=== PATIENT | male | born 1960 ===

== ENCOUNTER 2018-04-11 09:56 | Observation (INO) | payer MEDICAID, OTHER ==
[2018-04-11 10:02] VITALS: BMI 25.7
[2018-04-11] MEDS ORDERED: Iodixanol 320 MG/ML 100 ML BOTTLE IV ONE (10:31)
[2018-04-11] MEDS ORDERED: Sodium Chloride 0.9% 50 ML IV ONE (10:31)
--- NOTE | 2018-04-11 10:37 | ED PDOC ---
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 Patient stated that after his dialysis (TTS) he felt numbness on left side of his body, face, and leg, which continued in the ED. Patient denies any headache, chest pain or dizziness. PMD: none Financial Report Service Sales Agent: Juliet Jeffries NIHSS Stroke Scale - Date/Time Evaluation Performed Date Performed: 04/11/18 Time Performed: 09:47 When Was NIHSS Performed: Code Stroke - How Severe is the Stroke Level of Consciousness: 0=Alert LOC to Questions: 0=Both comments correct LOC to commands: 0=Obeys both correctly Best Gaze: 0=Normal Visual: 0=No visual loss Facial: 0=Normal Motor Arm - Left: 0=No drift Motor Arm - Right: 0=No drift Motor Leg - Left: 0=No drift Motor Leg - Right: 0=No drift Limb Ataxia: 0=Absent Sensory: 0=Normal Best Language: 0=No aphasia Dysarthia: 0=Normal articulation Extinction & Inattention (Neglect): 0=Normal, no object Score: 0 rTPA Inclusion/Exclusion - Refusal of Treatment Patient Refused Treatment: No - Inclusion Criteria for Altepase Patient is 18 years or Older: Yes The Clinical Diagnosis of Ischemic Stroke That is Causing a Potentially Disabling Neurological Deficit: No Time of Onset is Well Established to be Less Than 270 Minute Before Treatment Would Begin: Yes Risk/Benefit Discussed With Patient/Family Member Present: No Past Medical History Reviewed: Historical Data, Nursing Documentation, Vital Signs Vital Signs: Last Vital Signs Temp 97.7 F 04/11/18 09:59 Pulse 66 04/11/18 09:59 Resp 20 04/11/18 09:59 BP 112/71 04/11/18 09:59 Pulse Ox 96 04/11/18 09:59 - Medical History PMH: HTN, Hypercholesterolemia - Surgical History Other surgeries: AV shunt on right arm, dialysis - Family History Family History: States: Unknown Family Hx - Home Medications Home Medications: Ambulatory Orders Medication Instructions Recorded RX: Aspirin [Ecotrin] 81 mg PO DAILY 04/11/18 RX: Atorvastatin [Lipitor] 20 mg PO HS 04/11/18 RX: Cinacalcet [Sensipar] 30 mg PO DAILY 04/11/18 RX: GlipiZIDE [Glucotrol] 10 mg PO DAILY 04/11/18 RX: Metoprolol Tartrate [Lopressor] 25 mg PO Q12 04/11/18 RX: Sevelamer Carbonate [Renvela] 1,600 mg PO TID 04/11/18 RX: amLODIPine [Norvasc] 10 mg PO DAILY 04/11/18 RX: hydrALAZINE [Apresoline] 50 mg PO Q12 04/11/18 RX: Clopidogrel [Plavix] 75 mg PO DAILY 30 Days tab 04/12/18 - Allergies Allergies/Adverse Reactions: Allergies Allergy/AdvReac Type Severity Reaction Status Date / Time No Known Allergies Allergy Verified 04/11/18 10:16 Review of Systems ROS Statement: Except As Marked, All Systems Reviewed And Found Negative Cardiovascular: Negative for: Chest Pain Neurological: Positive for: Numbness. Negative for: Headache, Dizziness Physical Exam - Reviewed Nursing Documentation Reviewed: Yes Vital Signs Reviewed: Yes - Physical Exam Appears: Positive for: Non-toxic, No Acute Distress Head Exam: Positive for: ATRAUMATIC, NORMOCEPHALIC Skin: Positive for: Normal Color, Warm, Dry Eye Exam: Positive for: Normal appearance, EOMI, PERRL ENT: Positive for: Normal ENT Inspection Neck: Positive for: Normal, Painless ROM, Supple Cardiovascular/Chest: Positive for: Regular Rate, Rhythm. Negative for: Murmur Respiratory: Positive for: Normal Breath Sounds. Negative for: Respiratory Distress Gastrointestinal/Abdominal: Positive for: Normal Exam, Soft. Negative for: Tenderness Back: Positive for: Normal Inspection. Negative for: L CVA Tenderness, R CVA Tenderness, Vertebral Tenderness Extremity: Positive for: Normal ROM, Other (AV shunt in right arm). 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 Negative for: Motor/Sensory Deficits, Aphasia - Laboratory Results Result Diagrams: 04/12/18 04:50 04/12/18 11:27 - ECG O2 Sat by Pulse Oximetry: 96 (RA) Pulse Ox Interpretation: Normal - Critical Care Total Time (In Min): 30 Medical Decision Making Medical Decision Making: Initial Time: 10:20 Impression: Left sided numbness Differential diagnosis includes but not limited to TIA, acute CVA (ischemic vs. hemorrhagic) Plan: --Head CT without contrast Code stroke --CTA head/neck code stroke --EKG --BMP --Hemoglobin A1C --Lipid panel --Troponin 1 --Drug screen --Stroke team consult --Cbc with differential --Ptt --Pt --cardiac monitor --Saline lock --Nursing swallow screen PRN --Glucose, blood, POC --Vital signs Q15 mins 10:[address] Iyer who stated the CT was negative. 10:[address] FINDINGS: HEMORRHAGE: No intracranial hemorrhage. BRAIN: No mass effect or edema. No atrophy or chronic microvascular ischemic changes. VENTRICLES: Unremarkable. No hydrocephalus. CALVARIUM: Unremarkable. PARANASAL SINUSES: Unremarkable as visualized. No significant inflammatory changes. MASTOID AIR CELLS: Unremarkable as visualized. No inflammatory changes. OTHER FINDINGS: None. IMPRESSION: No acute intracranial abnormalities. No significant findings to account for the clinical presentation. Code stroke protocol: Study completed 10:27 Results conveyed verbally at 10:37. Interpretation finalized and available for review 10:38. 10:52 CTA FINDINGS: INTERNAL CEREBRAL ARTERIES: There is partially calcified atherosclerosis of the bilateral cavernous internal carotid artery segments without with [id number] bilateral stenosis resulting. The skull base, petrous, and supraclinoid segments are bilaterally widely patent. ANTERIOR CEREBRAL ARTERIES: Unremarkable. A1 and A2 segments are widely patent. Smaller distal branches unremarkable, as visualized. MIDDLE CEREBRAL ARTERIES: Unremarkable. M1 and M2 segments are widely patent. Perisylvian branches grossly symmetric. POSTERIOR CIRCULATION: Basilar Artery: Unremarkable. Distal Vertebral Arteries: Moderate to severe stenosis distal left vertebral artery with left dominant vertebrobasilar circulation identified. Posterior Cerebral Arteries: Unremarkable. Posterior Inferior Cerebellar Arteries: Unremarkable. NECK CTA: Common Carotid arteries: The bilateral common carotid appear widely patent from their origins to their bifurcations with no significant stenosis appreciated. No evidence to suggest common carotid artery dissection. Bilateral carotid bulbar calcified atherosclerosis is appreciated without significant stenosis resulting. Internal Carotid arteries: No significant stenosis is appreciated throughout the cervical internal carotid artery segments bilaterally and there is no evidence of dissection either. External Carotid arteries: Appear unremarkable bilaterally. Vertebral arteries: The bilateral vertebral arteries appear normal in caliber from their origins to their distal cervical segments. No significant stenosis or definite pattern of dissection. ANEURYSM/ VASCULAR MALFORMATIONS: None. OTHER FINDINGS: None. IMPRESSION: 1. Moderate to severe distal left vertebral artery stenosis with left dominant vertebrobasilar circulation. Right vertebral and basilar arteries are widely patent. Intracranial MR angiography also remarkable for [id number]-prfdeehw bilateral cavernous carotid atherosclerosis. 2. Mild bilateral carotid bulbar atherosclerosis with no significant cervical internal carotid artery or common carotid artery stenosis appreciated, bilaterally. 10:[address] Mendez who recommends MRI, aspirin and agrees the patient is not a TPA candidate. Discussed with Dr. Brandt for admission to the hospital, telemetry and observation. Case was also discussed with Dr. Jeffries. Scribe Attestation: Documented by Salvatore Wray, acting as a scribe for Bonny Jones MD. Provider Scribe Attestation: All medical record entries made by the Scribe were at my direction and personally dictated by me. I have reviewed the chart and agree that the record accurately reflects my personal performance of the history, physical exam, medical decision making, and the department course for this patient. I have also personally directed, reviewed, and agree with the discharge instructions and disposition. Disposition - Clinical Impression Clinical Impression: CVA (cerebral vascular accident) - Patient ED Disposition Is Patient to be Admitted: Yes Discussed With : Mara Brandt Doctor Will See Patient In The: ED - Disposition Disposition Time: 10:45 Condition: FAIR - Pt Status Changed To: Hospital Disposition Of: Observation - POA Present On Arrival: None
--- NOTE | 2018-04-11 10:43 | CT ---
Date of service: 04/11/2018 PROCEDURE: CT HEAD WITHOUT CONTRAST. HISTORY: numbness left COMPARISON: None available. TECHNIQUE: Axial computed tomography images were obtained through the head/brain without intravenous contrast. Supplemental Coronal and Sagittal projections created and reviewed. Radiation dose: Total exam DLP = 684.03 mGy-cm. This CT exam was performed using one or more of the following dose reduction techniques: Automated exposure control, adjustment of the mA and/or kV according to patient size, and/or use of iterative reconstruction technique. FINDINGS: HEMORRHAGE: No intracranial hemorrhage. BRAIN: No mass effect or edema. No atrophy or chronic microvascular ischemic changes. VENTRICLES: Unremarkable. No hydrocephalus. CALVARIUM: Unremarkable. PARANASAL SINUSES: Unremarkable as visualized. No significant inflammatory changes. MASTOID AIR CELLS: Unremarkable as visualized. No inflammatory changes. OTHER FINDINGS: None. IMPRESSION: No acute intracranial abnormalities. No significant findings to account for the clinical presentation. Code stroke protocol: Study completed 10:27 Results conveyed verbally at 10:37. Interpretation finalized and available for review 10:38.
[2018-04-11 10:49] LABS: BASO % 0.7 % (0.0-2.0); EOS # 0.1 K/uL (0.0-0.7); EOS % 1.4 % (0.0-4.0); HEMOGLOBIN 11.8 g/dL (12.0-18.0); LYMPH # 1.3 K/uL (1.0-4.3); LYMPH % 25.3 % (20.0-40.0); MEAN CELL VOLUME 98.7 fl (80.0-94.0); MEAN CORPUSCULAR HEMOGLOBIN 32.1 pg (27.0-31.0); MEAN CORPUSCULAR HGB CONC 32.5 g/dL (33.0-37.0); MEAN PLATELET VOLUME 10.2 fl (7.2-11.7); MONO # 0.7 K/uL (0.0-0.8); MONO % 12.9 % (0.0-10.0); NEUT # 3.1 K/uL (1.8-7.0); NEUT % 59.7 % (50.0-75.0); NRBC % 0.2 % (0.0-0.0); RBC 3.69 Mil/uL (4.40-5.90); RED CELL DISTRIBUTION WIDTH 14.6 % (11.5-14.5); WHITE BLOOD COUNT 5.3 K/uL (4.8-10.8)
[2018-04-11 10:54] LABS: PROTHROMBIN TIME 10.8 Seconds (9.8-13.1)
--- NOTE | 2018-04-11 10:56 | CT ---
Date of service: 04/11/2018 PROCEDURE: CT Angiography of the Brain and Neck. HISTORY: left numbness COMPARISON: None available. TECHNIQUE: CT angiography of the head and neck was performed following intravenous contrast administration. Coronal and sagittal maximum intensity projection reformatted images were generated. Contrast Dose: Visipaque 320, 99 cc Radiation dose: Total exam DLP = 463.75 mGy-cm. This CT exam was performed using one or more of the following dose reduction techniques: Automated exposure control, adjustment of the mA and/or kV according to patient size, and/or use of iterative reconstruction technique. FINDINGS: INTERNAL CEREBRAL ARTERIES: There is partially calcified atherosclerosis of the bilateral cavernous internal carotid artery segments without with [id number] bilateral stenosis resulting. The skull base, petrous, and supraclinoid segments are bilaterally widely patent. ANTERIOR CEREBRAL ARTERIES: Unremarkable. A1 and A2 segments are widely patent. Smaller distal branches unremarkable, as visualized. MIDDLE CEREBRAL ARTERIES: Unremarkable. M1 and M2 segments are widely patent. Perisylvian branches grossly symmetric. POSTERIOR CIRCULATION: Basilar Artery: Unremarkable. Distal Vertebral Arteries: Moderate to severe stenosis distal left vertebral artery with left dominant vertebrobasilar circulation identified. Posterior Cerebral Arteries: Unremarkable. Posterior Inferior Cerebellar Arteries: Unremarkable. NECK CTA: Common Carotid arteries: The bilateral common carotid appear widely patent from their origins to their bifurcations with no significant stenosis appreciated. No evidence to suggest common carotid artery dissection. Bilateral carotid bulbar calcified atherosclerosis is appreciated without significant stenosis resulting. Internal Carotid arteries: No significant stenosis is appreciated throughout the cervical internal carotid artery segments bilaterally and there is no evidence of dissection either. External Carotid arteries: Appear unremarkable bilaterally. Vertebral arteries: The bilateral vertebral arteries appear normal in caliber from their origins to their distal cervical segments. No significant stenosis or definite pattern of dissection. ANEURYSM/ VASCULAR MALFORMATIONS: None. OTHER FINDINGS: None. IMPRESSION: 1. Moderate to severe distal left vertebral artery stenosis with left dominant vertebrobasilar circulation. Right vertebral and basilar arteries are widely patent. Intracranial MR angiography also remarkable for hkkq-lr-egiaqley bilateral cavernous carotid atherosclerosis. 2. Mild bilateral carotid bulbar atherosclerosis with no significant cervical internal carotid artery or common carotid artery stenosis appreciated, bilaterally.
[2018-04-11 10:57] LABS: PARTIAL THROMBOPLASTIN TIME 31.1 Seconds (25.6-37.1)
[2018-04-11 11:15] LABS: TROPONIN I 0.069 ng/mL (0.00-0.120)
[2018-04-11] MEDS ORDERED: Labetalol 5mg/ml (4ml) IVP STA (12:01)
--- NOTE | 2018-04-11 12:52 | CP.PCM.HP ---
History of Present Illness - History of Present Illness History of Present Illness: Mr Patten is a 58 yo male with PMH of HTn, DM2, Hypercholesterolemia, end stage renal disease on dialysis (T,T,S) * able to void, was sent from dialysis due to patient had weakness, numbness on LEFT upper and lower limp annd face with difficulty swallowing and blurry vision after having his dialysis done at 9 am 04/11/18. Patient state that he never had this before, he also complained of severe headache that was 9 out of ten. Upon arrival to ED code stroke was activated, Ct scan was negative, patient symptoms have improved/resolved except for the headache. Patient state that his blood pressure is most of time is uncontrolled even if he take his medication, he state when he check his bp its normally in the 130s to 140s. Otherwise patient have no other complain, he denies LOC, dizziness, chest pain, sob, abdominal pain, loss of BM, diarrhea, constipation, dysuria or polyuria. Patient denies any trauma. Patient denies having these symptoms before. 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, family are in [place], Denies smoke, drink or drug use Surrogate: Sister Patient is Full Code ED Course --Code Stroke was called-- Upon arrival patient Vitals were WNL except for blood pressure went from 112/71 to 191/98 Neurologic/Psych: No motor/sensory deficit, 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, Oriented x3, Cerebellar Tests normal, Gait steady CT scan: negative for acute changes EKG Troponin 1x Negative Cbc with differential BMP Ptt/Ptt normal Lipid panel normal patient monitor vitals Sign Q15min Admit under observation to Evaluate CVA vs TIA Present on Admission - Present on Admission Any Indicators Present on Admission: No Review of Systems - Review of Systems All systems: reviewed and no additional remarkable complaints except - Constitutional Constitutional: absent: Anorexia, Chills, Daytime Sleepiness, Excessive Sweating, Night Sweats - EENT Eyes: Blurred Vision, Change in Vision. absent: Blind Spots Ears: absent: Decreased Hearing, Ear Discharge, Ear Pain Nose/Mouth/Throat: absent: Nasal Congestion, Nasal Discharge - Cardiovascular Cardiovascular: absent: Acrocyanosis, Chest Pain, Chest Pain at Rest, Chest Pain with Activity, Claudication, Pedal Edema, Radiating Pain - Respiratory Respiratory: absent: Cough, Dyspnea, Hemoptysis, Dyspnea on Exertion - Gastrointestinal Gastrointestinal: absent: Abdominal Pain, Bloating, Diarrhea, Dysphagia - Genitourinary Genitourinary: absent: Difficulty Urinating, Dysuria, Hematuria, Pyuria, Nocturia - Musculoskeletal Musculoskeletal: Muscle Weakness, Numbness Additional comments: Have improved - Neurological Neurological: absent: Behavioral Changes, Confusion, Restless Legs, Tremor - Psychiatric Psychiatric: absent: Confusion, Depression - Endocrine Endocrine: absent: Deepening of Voice, Fatigue - Hematologic/Lymphatic Hematologic: absent: Easy Bleeding Past Patient History - Infectious Disease Hx of Infectious Diseases: None - Past Social History Smoking Status: Never Smoked - CARDIAC Hx Hypercholesterolemia: Yes Hx Hypertension: Yes - RENAL Hx Dialysis: Yes Type of Dialysis Access: rt. lissy cath Date of Last Dialysis Treatment: 04/11/18 Hx Renal Failure: Yes - ENDOCRINE/METABOLIC Hx Diabetes Mellitus Type 2: Yes - PSYCHIATRIC Hx Substance Use: No Meds Allergies/Adverse Reactions: Allergies Allergy/AdvReac Type Severity Reaction Status Date / Time No Known Allergies Allergy Verified 04/11/18 10:16 Physical Exam - Constitutional Appears: Well, Non-toxic, No Acute Distress - Head Exam Head Exam: ATRAUMATIC, NORMAL INSPECTION, NORMOCEPHALIC - Eye Exam Eye Exam: EOMI, Normal appearance, PERRL Pupil Exam: NORMAL ACCOMODATION, PERRL - ENT Exam ENT Exam: Mucous Membranes Moist, Normal Exam - Neck Exam Neck exam: Positive for: Normal Inspection - Respiratory Exam Respiratory Exam: Clear to Auscultation Bilateral, NORMAL BREATHING PATTERN. absent: Rales, Stridor - Cardiovascular Exam Cardiovascular Exam: REGULAR RHYTHM, +S1, +S2. absent: Diastolic murmur, Gallop - GI/Abdominal Exam GI & Abdominal Exam: Normal Bowel Sounds, Soft - Extremities Exam Extremities exam: Positive for: full ROM, normal inspection. Negative for: calf tenderness, joint swelling, pedal edema - Back Exam Back exam: NORMAL INSPECTION. absent: CVA tenderness (L), CVA tenderness (R) - Neurological Exam Neurological exam: Alert, CN II-XII Intact, Normal Gait, Oriented x3 - Psychiatric Exam Psychiatric exam: Normal Affect, Normal Mood - Skin Skin Exam: Dry, Intact, Normal Color, Warm Results - Vital Signs Recent Vital Signs: Last Vital Signs Temp 97.7 F 04/11/18 09:59 Pulse 67 04/11/18 11:41 Resp 18 04/11/18 11:41 BP 180/103 H 04/11/18 11:41 Pulse Ox 96 04/11/18 12:42 - Labs Result Diagrams: 04/11/18 10:20 04/11/18 10:20 Labs: Laboratory Results - last 24 hr 04/11/18 04/11/18 04/11/18 10:12 10:20 10:20 WBC 5.3 RBC 3.69 L Hgb 11.8 L Hct 36.4 MCV 98.7 H MCH 32.1 H MCHC 32.5 L RDW 14.6 H Plt Count 167 MPV 10.2 Neut % (Auto) 59.7 Lymph % (Auto) 25.3 [place] % (Auto) 12.9 H Eos % (Auto) 1.4 Baso % (Auto) 0.7 Neut # (Auto) 3.1 Lymph # (Auto) 1.3 [place] # (Auto) 0.7 Eos # (Auto) 0.1 Baso # (Auto) 0.0 PT INR APTT Sodium 138 Potassium 4.9 Chloride 95 L Carbon Dioxide 30 Anion Gap 18 BUN 21 H Creatinine 5.1 H Est GFR ( Amer) 14 Est GFR (Non-Af Amer) 12 POC Glucose (mg/dL) 98 Random Glucose 118 H Calcium 9.0 Troponin I 0.0690 Triglycerides 104 Cholesterol 90 LDL Cholesterol Direct 42 HDL Cholesterol 39 04/11/18 10:20 WBC RBC Hgb Hct MCV MCH MCHC RDW Plt Count MPV Neut % (Auto) Lymph % (Auto) [place] % (Auto) Eos % (Auto) Baso % (Auto) Neut # (Auto) Lymph # (Auto) [place] # (Auto) Eos # (Auto) Baso # (Auto) PT 10.8 INR 1.0 APTT 31.1 Sodium Potassium Chloride Carbon Dioxide Anion Gap BUN Creatinine Est GFR ( Amer) Est GFR (Non-Af Amer) POC Glucose (mg/dL) Random Glucose Calcium Troponin I Triglycerides Cholesterol LDL Cholesterol Direct HDL Cholesterol Assessment & Plan - Assessment and Plan (Free Text) Assessment: Mr Patten is a 58 yo male with PMH of HTn, DM2, Hypercholesterolemia, End stage renal disease on dialysis (T,T,S) was sent from dialysis due to patient had weakness, numbness on LEFT upper and lower limp annd face with difficulty swallowing and blurry vision after having his dialysis done at 9 am 04/11/18. S/P Code stroke, admitted under observation for further evaluation of CVA vs TIA Assessment S/P Code stroke Neurology on case Hx of uncontrolled HTN Patient physical exam is negative for motor/sensory deficit, CN I-IIX WNL Ct scan Negative CTA: negative RAÚL Ordered need to be followed Plan Left sided numbness possible due to CVA vs TIA Continue monitoring for acute exacerbation Continue Aspirin 81mg Control blood pressure, allow permissive htn until eval for CVA completed. patient monitor Neuro on case follow up recommendation n Accelerated HTN Chronic, Uncontrolled Resume home medication allow Permissive Htn until r/o stroke DM2 Chronic, Controlled F/U HA1C Start sliding scale hypoglycemic protocol Hypercholesterolemia Chronic, Controlled Continue home medication End stage renal disease on dialysis Chronic since 2010 (TTS) Pt is able to void Received Dialysis today, No Dialysis needed until Wed Consult nephrology DVT prophylaxis Lovenox 40 SC Full Code
[2018-04-11] MEDS ORDERED: Labetalol 5mg/ml (4ml) ONE (14:35)
[2018-04-11] MEDS ORDERED: Dextrose 50% SYRINGE Inj (50 ml) IV PRN (16:05)
[2018-04-11] MEDS ORDERED: Glucagon Recombinant 1 mg Inj IM PRN (16:05)
--- NOTE | 2018-04-11 16:14 | MRI ---
Date of service: 04/11/2018 PROCEDURE: MRI BRAIN WITHOUT CONTRAST HISTORY: left numbness COMPARISON: Unenhanced head CT 04/11/2018. TECHNIQUE: Multiplanar, multisequence MR images of the brain were obtained without intravenous contrast enhancement. FINDINGS: HEMORRHAGE: None DWI: A small punctate infarcts identified on acute or subacute basis at the right frontal vertex. No lobar brain infarction appreciated throughout. BRAIN PARENCHYMA: Diffuse cerebral atrophy chronic microangiopathy are reiterated as well as small chronic lacunes at the bilateral frontal and parietal lobes. There is no mass effect once again. Posterior fossa contents appear unremarkable. Left external capsule chronic lacune is noted as well as at the right thalamus. No suspicious extra-axial fluid collection appreciated. VENTRICLES: Unremarkable. No hydrocephalus. CRANIUM: Unremarkable. ORBITS: Grossly unremarkable. PARANASAL SINUSES/MASTOIDS: Clear VASCULAR SYSTEM: Skull base flow voids intact. OTHER FINDINGS: None. IMPRESSION: Punctate acute lacune right frontal vertex. Multiple chronic lacunes identified at bilateral frontal and parietal lobes as well as at the left basal ganglia. A few scattered cavernomas are suggested at the bilateral frontal and left parietal lobes as well right occipital lobe. Chronic lacune left external capsule identified as well as at right thalamus. Age-related neuro degenerative changes are reiterated.
[2018-04-11 16:36] LABS: BARBITURATES, UR NEGATIVE (NEGATIVE); BENZODIAZEPINES, UR NEGATIVE (NEGATIVE); OPIATES, UR NEGATIVE (NEGATIVE); PHENCYCLIDINE, UR NEGATIVE (NEGATIVE)
--- NOTE | 2018-04-11 17:44 | CARD ---
APPROVED REPORT Date of service: 04/11/2018 EKG Measurement Heart [id number] ID [id number] <Conclusion> Normal sinus rhythm with sinus arrhythmia Possible Left atrial enlargement T wave abnormality, consider inferolateral ischemia Abnormal ECG
[2018-04-11] MEDS: Insulin Lispro (humaLOG) 100 Units/ml Inj SC SCH (21:33)
--- NOTE | 2018-04-11 22:59 | CP.PCM.CON ---
History of Present Illness - History of Present Illness History of Present Illness: Called by in [place] ER to evaluate patient as a code stroke. In brief, Miss mansfield is a 58 yr old woman who had sudden onset of numbness and tingling that resolved. MRI Brain shows multiple small infarcts acute in nature in the basal ganglia, with CTA head and neck showing severe vertebral artery stenosis. Stroke workup in progress. Patient was not a TPA candidate due to the fact that her symptoms resolved and she is now on aspirin and plavix. Past Patient History - Infectious Disease Hx of Infectious Diseases: None - Past Medical History & Family History Past Medical History?: Yes - Past Social History Smoking Status: Never Smoked - CARDIAC Hx Hypercholesterolemia: Yes Hx Hypertension: Yes - RENAL Hx Dialysis: Yes Type of Dialysis Access: rt. lissy cath Date of Last Dialysis Treatment: 04/11/18 Hx Renal Failure: Yes - ENDOCRINE/METABOLIC Hx Diabetes Mellitus Type 2: Yes - MUSCULOSKELETAL/RHEUMATOLOGICAL Hx Falls: No - PSYCHIATRIC Hx Substance Use: No Meds Allergies/Adverse Reactions: Allergies Allergy/AdvReac Type Severity Reaction Status Date / Time No Known Allergies Allergy Verified 04/11/18 10:16 - Medications Medications: Current Medications Amlodipine Besylate (Norvasc) 10 mg PO DAILY [facility] Aspirin (Ecotrin) 81 mg PO DAILY [facility] Atorvastatin Calcium (Lipitor) 40 mg PO HS [facility] Last Admin: 04/11/18 21:33 Dose: 40 mg Clopidogrel Bisulfate (Plavix) 75 mg PO DAILY [facility] Dextrose (Dextrose 50% Inj) 0 ml IV STAT PRN; Protocol PRN Reason: Hypoglycemia Protocol Dextrose (Glutose 15) 0 gm PO ONCE PRN; Protocol PRN Reason: Hypoglycemia Protocol Glucagon (Glucagen Diagnostic Kit) 0 mg IM STAT PRN; Protocol PRN Reason: Hypoglycemia Protocol Heparin Sodium (Porcine) (Heparin) 5,000 units SC Q12 [facility]; Protocol Last Admin: 04/11/18 21:33 Dose: 5,000 units Hydralazine HCl (Apresoline) 50 mg PO Q12 [facility] Last Admin: 04/11/18 21:25 Dose: 50 mg Insulin Human Lispro (Humalog) 0 units SC ACHS [facility]; Protocol Last Admin: 04/11/18 21:33 Dose: Not Given Metoprolol Tartrate (Lopressor) 25 mg PO Q12 [facility] Last Admin: 04/11/18 21:33 Dose: 25 mg Results - Vital Signs Recent Vital Signs: Last Vital Signs Temp 98.6 F 04/11/18 19:58 Pulse 66 04/11/18 21:33 Resp 17 04/11/18 19:58 BP 155/77 H 04/11/18 21:33 Pulse Ox 96 04/11/18 19:58 - Labs Result Diagrams: 04/11/18 10:20 04/11/18 10:20 Labs: Laboratory Results - last 24 hr 04/11/18 04/11/18 04/11/18 10:12 10:20 10:20 WBC 5.3 RBC 3.69 L Hgb 11.8 L Hct 36.4 MCV 98.7 H MCH 32.1 H MCHC 32.5 L RDW 14.6 H Plt Count 167 MPV 10.2 Neut % (Auto) 59.7 Lymph % (Auto) 25.3 [place] % (Auto) 12.9 H Eos % (Auto) 1.4 Baso % (Auto) 0.7 Neut # (Auto) 3.1 Lymph # (Auto) 1.3 [place] # (Auto) 0.7 Eos # (Auto) 0.1 Baso # (Auto) 0.0 PT INR APTT Sodium 138 Potassium 4.9 Chloride 95 L Carbon Dioxide 30 Anion Gap 18 BUN 21 H Creatinine 5.1 H Est GFR ( Amer) 14 Est GFR (Non-Af Amer) 12 POC Glucose (mg/dL) 98 Random Glucose 118 H Hemoglobin A1c Calcium 9.0 Troponin I 0.0690 Triglycerides 104 Cholesterol 90 LDL Cholesterol Direct 42 HDL Cholesterol 39 Urine Opiates Screen Urine Methadone Screen Ur Barbiturates Screen Ur Phencyclidine Scrn Ur Amphetamines Screen U Benzodiazepines Scrn U Oth Cocaine Metabols U Cannabinoids Screen 04/11/18 04/11/18 04/11/18 10:20 10:20 16:11 WBC RBC Hgb Hct MCV MCH MCHC RDW Plt Count MPV Neut % (Auto) Lymph % (Auto) [place] % (Auto) Eos % (Auto) Baso % (Auto) Neut # (Auto) Lymph # (Auto) [place] # (Auto) Eos # (Auto) Baso # (Auto) PT 10.8 INR 1.0 APTT 31.1 Sodium Potassium Chloride Carbon Dioxide Anion Gap BUN Creatinine Est GFR ( Amer) Est GFR (Non-Af Amer) POC Glucose (mg/dL) Random Glucose Hemoglobin A1c 6.0 Calcium Troponin I Triglycerides Cholesterol LDL Cholesterol Direct HDL Cholesterol Urine Opiates Screen Negative Urine Methadone Screen Negative Ur Barbiturates Screen Negative Ur Phencyclidine Scrn Negative Ur Amphetamines Screen Negative U Benzodiazepines Scrn Negative U Oth Cocaine Metabols Negative U Cannabinoids Screen Negative
--- NOTE | 2018-04-11 23:36 | CP.PCM.CON ---
History of Present Illness - History of Present Illness History of Present Illness: Full consult dictated. Please see report for further details. In brief, mr. mansfield had acute onset left arm leg and face numbness with no weakness. These symptoms resolved and he is now stable and ready for discharge. He has had str travis workup completed, including Echo, lipid profile, and CTA head and neck. Cta showed that he has vertebral artery stenosis, and we started him on aspirin and plavix. Plan: 1. Continue on aspirin and plavix. 2. Follow up with neurology Cheryleyoeaston stubbs Past Patient History - Infectious Disease Hx of Infectious Diseases: None - Past Medical History & Family History Past Medical History?: Yes - Past Social History Smoking Status: Never Smoked - CARDIAC Hx Hypercholesterolemia: Yes Hx Hypertension: Yes - RENAL Hx Dialysis: Yes Type of Dialysis Access: rt. lissy cath Date of Last Dialysis Treatment: 04/11/18 Hx Renal Failure: Yes - ENDOCRINE/METABOLIC Hx Diabetes Mellitus Type 2: Yes - MUSCULOSKELETAL/RHEUMATOLOGICAL Hx Falls: No - PSYCHIATRIC Hx Substance Use: No Meds Allergies/Adverse Reactions: Allergies Allergy/AdvReac Type Severity Reaction Status Date / Time No Known Allergies Allergy Verified 04/11/18 10:16 - Medications Medications: Current Medications Amlodipine Besylate (Norvasc) 10 mg PO DAILY [facility] Aspirin (Ecotrin) 81 mg PO DAILY [facility] Atorvastatin Calcium (Lipitor) 40 mg PO HS [facility] Last Admin: 04/11/18 21:33 Dose: 40 mg Clopidogrel Bisulfate (Plavix) 75 mg PO DAILY [facility] Dextrose (Dextrose 50% Inj) 0 ml IV STAT PRN; Protocol PRN Reason: Hypoglycemia Protocol Dextrose (Glutose 15) 0 gm PO ONCE PRN; Protocol PRN Reason: Hypoglycemia Protocol Glucagon (Glucagen Diagnostic Kit) 0 mg IM STAT PRN; Protocol PRN Reason: Hypoglycemia Protocol Heparin Sodium (Porcine) (Heparin) 5,000 units SC Q12 [facility]; Protocol Last Admin: 04/11/18 21:33 Dose: 5,000 units Hydralazine HCl (Apresoline) 50 mg PO Q12 [facility] Last Admin: 04/11/18 21:25 Dose: 50 mg Insulin Human Lispro (Humalog) 0 units SC ACHS [facility]; Protocol Last Admin: 04/11/18 21:33 Dose: Not Given Metoprolol Tartrate (Lopressor) 25 mg PO Q12 [facility] Last Admin: 04/11/18 21:33 Dose: 25 mg Results - Vital Signs Recent Vital Signs: Last Vital Signs Temp 98.6 F 04/11/18 19:58 Pulse 66 04/11/18 21:33 Resp 17 04/11/18 19:58 BP 155/77 H 04/11/18 21:33 Pulse Ox 96 04/11/18 19:58 - Labs Result Diagrams: 04/12/18 04:50 04/12/18 11:27 Labs: Laboratory Results - last 24 hr 04/11/18 04/11/18 04/11/18 10:12 10:20 10:20 WBC 5.3 RBC 3.69 L Hgb 11.8 L Hct 36.4 MCV 98.7 H MCH 32.1 H MCHC 32.5 L RDW 14.6 H Plt Count 167 MPV 10.2 Neut % (Auto) 59.7 Lymph % (Auto) 25.3 [place] % (Auto) 12.9 H Eos % (Auto) 1.4 Baso % (Auto) 0.7 Neut # (Auto) 3.1 Lymph # (Auto) 1.3 [place] # (Auto) 0.7 Eos # (Auto) 0.1 Baso # (Auto) 0.0 PT INR APTT Sodium 138 Potassium 4.9 Chloride 95 L Carbon Dioxide 30 Anion Gap 18 BUN 21 H Creatinine 5.1 H Est GFR ( Amer) 14 Est GFR (Non-Af Amer) 12 POC Glucose (mg/dL) 98 Random Glucose 118 H Hemoglobin A1c Calcium 9.0 Troponin I 0.0690 Triglycerides 104 Cholesterol 90 LDL Cholesterol Direct 42 HDL Cholesterol 39 Urine Opiates Screen Urine Methadone Screen Ur Barbiturates Screen Ur Phencyclidine Scrn Ur Amphetamines Screen U Benzodiazepines Scrn U Oth Cocaine Metabols U Cannabinoids Screen 04/11/18 04/11/18 04/11/18 10:20 10:20 16:11 WBC RBC Hgb Hct MCV MCH MCHC RDW Plt Count MPV Neut % (Auto) Lymph % (Auto) [place] % (Auto) Eos % (Auto) Baso % (Auto) Neut # (Auto) Lymph # (Auto) [place] # (Auto) Eos # (Auto) Baso # (Auto) PT 10.8 INR 1.0 APTT 31.1 Sodium Potassium Chloride Carbon Dioxide Anion Gap BUN Creatinine Est GFR ( Amer) Est GFR (Non-Af Amer) POC Glucose (mg/dL) Random Glucose Hemoglobin A1c 6.0 Calcium Troponin I Triglycerides Cholesterol LDL Cholesterol Direct HDL Cholesterol Urine Opiates Screen Negative Urine Methadone Screen Negative Ur Barbiturates Screen Negative Ur Phencyclidine Scrn Negative Ur Amphetamines Screen Negative U Benzodiazepines Scrn Negative U Oth Cocaine Metabols Negative U Cannabinoids Screen Negative
[2018-04-12 05:46] LABS: HEMOGLOBIN 11.8 g/dL (12.0-18.0); MEAN CORPUSCULAR HEMOGLOBIN 31.9 pg (27.0-31.0); MEAN CORPUSCULAR HGB CONC 32.3 g/dL (33.0-37.0); RBC 3.69 Mil/uL (4.40-5.90); RED CELL DISTRIBUTION WIDTH 14.3 % (11.5-14.5); WHITE BLOOD COUNT 6.3 K/uL (4.8-10.8)
[2018-04-12 06:09] LABS: CALCIUM 9.1 mg/dL (8.4-10.2)
[2018-04-12] MEDS ORDERED: Sod Polystyrene Sulf 15 gm/60 ml Susp PO ONE ×2 (07:43→17:00)
--- NOTE | 2018-04-12 08:52 | CARD ---
APPROVED REPORT Date of service: 04/12/2018 EKG Measurement Heart [id number] <Conclusion> Normal sinus rhythm with sinus arrhythmia Left ventricular hypertrophy with repolarization abnormality T wave abnormality, cannot rule out inferolateral ischemia Abnormal ECG
[2018-04-12] MEDS ORDERED: Enoxaparin 40 mg Syringe SC SCH (09:00)
[2018-04-12] MEDS: Insulin Lispro (humaLOG) 100 Units/ml Inj SC SCH ×4 (10:06→22:31)
--- NOTE | 2018-04-12 11:37 | CP.PCM.CON ---
History of Present Illness - History of Present Illness History of Present Illness: 58 yo Hm with pmh/o htn, esrd on hd since 2010 , dm, was sent from hd unit after dialysis with left sideded numbness and, l, sx last for 20 minutes, no h/a,no dizyness, no cp, palpitation, no nausea, no vomitings, no fever, no cough, no sob weakness , sudden onset. as per Rn his sbp was about 180 . pt was also admitted to Hospital in [place] about 2 weeks ago with semilar symptoms. Review of Systems - Constitutional Constitutional: As Per HPI - EENT Eyes: As Per HPI Ears: As Per HPI Nose/Mouth/Throat: As Per HPI - Cardiovascular Cardiovascular: As Per HPI - Respiratory Respiratory: As Per HPI - Gastrointestinal Gastrointestinal: As Per HPI - Genitourinary Genitourinary: As Per HPI - Musculoskeletal Musculoskeletal: As Per HPI - Integumentary Integumentary: As Per HPI - Neurological Additional comments: left sided weakness, numbness for 20 minutes - Endocrine Endocrine: As Per HPI - Hematologic/Lymphatic Hematologic: As Per HPI Past Patient History - Infectious Disease Hx of Infectious Diseases: None - Past Medical History & Family History Past Medical History?: Yes - Past Social History Smoking Status: Never Smoked - CARDIAC Hx Hypercholesterolemia: Yes Hx Hypertension: Yes - RENAL Hx Dialysis: Yes Type of Dialysis Access: rt. lissy cath Date of Last Dialysis Treatment: 04/11/18 Hx Renal Failure: Yes - ENDOCRINE/METABOLIC Hx Diabetes Mellitus Type 2: Yes - MUSCULOSKELETAL/RHEUMATOLOGICAL Hx Falls: No - PSYCHIATRIC Hx Substance Use: No Meds Home Medications: Home Medication List Medication Instructions Recorded Confirmed Type Clopidogrel [Plavix] 75 mg PO DAILY 30 Days tab 04/12/18 Rx Allergies/Adverse Reactions: Allergies Allergy/AdvReac Type Severity Reaction Status Date / Time No Known Allergies Allergy Verified 04/11/18 10:16 - Medications Medications: Current Medications Amlodipine Besylate (Norvasc) 10 mg PO DAILY [facility] Last Admin: 04/12/18 10:07 Dose: 10 mg Aspirin (Ecotrin) 81 mg PO DAILY [facility] Last Admin: 04/12/18 10:05 Dose: 81 mg Atorvastatin Calcium (Lipitor) 40 mg PO HS [facility] Last Admin: 04/11/18 21:33 Dose: 40 mg Clopidogrel Bisulfate (Plavix) 75 mg PO DAILY [facility] Last Admin: 04/12/18 10:07 Dose: 75 mg Dextrose (Dextrose 50% Inj) 0 ml IV STAT PRN; Protocol PRN Reason: Hypoglycemia Protocol Dextrose (Glutose 15) 0 gm PO ONCE PRN; Protocol PRN Reason: Hypoglycemia Protocol Glucagon (Glucagen Diagnostic Kit) 0 mg IM STAT PRN; Protocol PRN Reason: Hypoglycemia Protocol Heparin Sodium (Porcine) (Heparin) 5,000 units SC Q12 [facility]; Protocol Last Admin: 04/12/18 10:05 Dose: 5,000 units Hydralazine HCl (Apresoline) 50 mg PO Q12 [facility] Last Admin: 04/12/18 10:04 Dose: 50 mg Insulin Human Lispro (Humalog) 0 units SC ACHS [facility]; Protocol Last Admin: 04/12/18 10:06 Dose: Not Given Metoprolol Tartrate (Lopressor) 25 mg PO Q12 [facility] Last Admin: 04/12/18 10:07 Dose: 25 mg Physical Exam - Constitutional Appears: Well, Non-toxic, No Acute Distress - Head Exam Head Exam: ATRAUMATIC, NORMAL INSPECTION - Eye Exam Eye Exam: EOMI, Normal appearance, PERRL Pupil Exam: NORMAL ACCOMODATION - ENT Exam ENT Exam: Mucous Membranes Moist - Respiratory Exam Respiratory Exam: Clear to Auscultation Bilateral, NORMAL BREATHING PATTERN - Cardiovascular Exam Cardiovascular Exam: REGULAR RHYTHM, +S1, +S2 - GI/Abdominal Exam GI & Abdominal Exam: Normal Bowel Sounds, Soft - Rectal Exam Rectal Exam: Deferred - Extremities Exam Additional comments: nl edema - Neurological Exam Neurological exam: Alert, CN II-XII Intact, Normal Gait, Oriented x3 - Psychiatric Exam Psychiatric exam: Normal Affect, Normal Mood - Skin Skin Exam: Normal Color Results - Vital Signs Recent Vital Signs: Last Vital Signs Temp 97.5 F L 04/12/18 07:50 Pulse 69 04/12/18 10:07 Resp 20 04/12/18 07:50 BP 181/76 H 04/12/18 10:07 Pulse Ox 98 04/12/18 07:50 - Labs Result Diagrams: 04/12/18 04:50 04/12/18 11:27 Labs: Laboratory Results - last 24 hr 04/11/18 04/11/18 04/11/18 10:20 16:11 21:30 WBC RBC Hgb Hct MCV MCH MCHC RDW Plt Count Sodium Potassium Chloride Carbon Dioxide Anion Gap BUN Creatinine Est GFR ( Amer) Est GFR (Non-Af Amer) POC Glucose (mg/dL) 88 Random Glucose Hemoglobin A1c 6.0 Calcium Urine Opiates Screen Negative Urine Methadone Screen Negative Ur Barbiturates Screen Negative Ur Phencyclidine Scrn Negative Ur Amphetamines Screen Negative U Benzodiazepines Scrn Negative U Oth Cocaine Metabols Negative U Cannabinoids Screen Negative 04/12/18 04/12/18 04/12/18 04:50 04:50 05:16 WBC 6.3 RBC 3.69 L Hgb 11.8 L Hct 36.5 MCV 99.0 H MCH 31.9 H MCHC 32.3 L RDW 14.3 Plt Count 154 Sodium 138 Potassium 5.7 H Chloride 95 L Carbon Dioxide 31 H Anion Gap 18 BUN 43 H Creatinine 8.3 H* D Est GFR ( Amer) 8 Est GFR (Non-Af Amer) 7 POC Glucose (mg/dL) 91 Random Glucose 93 Hemoglobin A1c Calcium 9.1 Urine Opiates Screen Urine Methadone Screen Ur Barbiturates Screen Ur Phencyclidine Scrn Ur Amphetamines Screen U Benzodiazepines Scrn U Oth Cocaine Metabols U Cannabinoids Screen 04/12/18 10:57 WBC RBC Hgb Hct MCV MCH MCHC RDW Plt Count Sodium Potassium Chloride Carbon Dioxide Anion Gap BUN Creatinine Est GFR ( Amer) Est GFR (Non-Af Amer) POC Glucose (mg/dL) 228 H Random Glucose Hemoglobin A1c Calcium Urine Opiates Screen Urine Methadone Screen Ur Barbiturates Screen Ur Phencyclidine Scrn Ur Amphetamines Screen U Benzodiazepines Scrn U Oth Cocaine Metabols U Cannabinoids Screen - Imaging and Cardiology CT scan - head Status: Report reviewed by me MRI - head Status: Report reviewed by me Assessment & Plan - Assessment and Plan (Free Text) Assessment: 58 yo HM with pmh/o htn, dm, esrd on hd since 2010 with left sided weakness 1. ESRD 2. HTN 3. DM 4. Hyperkalemia 5. TIA agree with kayexalate for hd in am c/w current anti htn meds, and titrate as needed follow up with neurology Plan: as above
--- NOTE | 2018-04-12 14:05 | CP.PCM.PN ---
<Osito Kline - Last Filed: 04/12/18 16:45> Subjective - Date & Time of Evaluation Date of Evaluation: 04/12/18 Time of Evaluation: 08:00 - Subjective Subjective: Patient seen and examined at bedside. No acute event overnight. Patient was able to eat, drink, swallow with no difficulty, he denies any vision problem, chewing , or any numbness or weakness in all extremity. Patient state he feel good, and denies any headache, chest pain, sob, abd pain or any other symptoms. Objective - Vital Signs/Intake and Output Vital Signs (last 24 hours): Temp Pulse Resp BP Pulse Ox 97.6 F 61 20 157/73 H 98 04/12/18 12:21 04/12/18 12:21 04/12/18 12:21 04/12/18 12:21 04/12/18 12:21 - Medications Medications: Current Medications Amlodipine Besylate (Norvasc) 10 mg PO DAILY [facility] Last Admin: 04/12/18 10:07 Dose: 10 mg Aspirin (Ecotrin) 81 mg PO DAILY [facility] Last Admin: 04/12/18 10:05 Dose: 81 mg Atorvastatin Calcium (Lipitor) 40 mg PO HS [facility] Last Admin: 04/11/18 21:33 Dose: 40 mg Clopidogrel Bisulfate (Plavix) 75 mg PO DAILY [facility] Last Admin: 04/12/18 10:07 Dose: 75 mg Dextrose (Dextrose 50% Inj) 0 ml IV STAT PRN; Protocol PRN Reason: Hypoglycemia Protocol Dextrose (Glutose 15) 0 gm PO ONCE PRN; Protocol PRN Reason: Hypoglycemia Protocol Glucagon (Glucagen Diagnostic Kit) 0 mg IM STAT PRN; Protocol PRN Reason: Hypoglycemia Protocol Heparin Sodium (Porcine) (Heparin) 5,000 units [place] Q12 [facility]; Protocol Last Admin: 04/12/18 10:05 Dose: 5,000 units Hydralazine HCl (Apresoline) 50 mg PO Q12 [facility] Last Admin: 04/12/18 10:04 Dose: 50 mg Insulin Human Lispro (Humalog) 0 units SC ACHS [facility]; Protocol Last Admin: 04/12/18 12:13 Dose: 3 units Metoprolol Tartrate (Lopressor) 25 mg PO Q12 [facility] Last Admin: 04/12/18 10:07 Dose: 25 mg - Labs Labs: 04/12/18 04:50 04/12/18 11:27 PT 10.8 Seconds (9.8-13.1) 04/11/18 10:20 INR 1.0 04/11/18 10:20 APTT 31.1 Seconds (25.6-37.1) 04/11/18 10:20 - Constitutional Appears: Well, Non-toxic, No Acute Distress - Head Exam Head Exam: ATRAUMATIC, NORMAL INSPECTION, NORMOCEPHALIC - Eye Exam Eye Exam: EOMI, Normal appearance, PERRL Pupil Exam: NORMAL ACCOMODATION, PERRL - ENT Exam ENT Exam: Mucous Membranes Moist, Normal Exam - Neck Exam Neck Exam: Full ROM, Normal Inspection - Respiratory Exam Respiratory Exam: Clear to Ausculation Bilateral, NORMAL BREATHING PATTERN - Cardiovascular Exam Cardiovascular Exam: REGULAR RHYTHM, +S1, +S2 - GI/Abdominal Exam GI & Abdominal Exam: Soft, Normal Bowel Sounds - Extremities Exam Extremities Exam: Full ROM, Normal Capillary Refill, Normal Inspection - Back Exam Back Exam: NORMAL INSPECTION - Neurological Exam Neurological Exam: Alert, Awake, CN II-XII Intact, Motor Sensory Deficit, Normal Gait, Oriented x3 Neuro motor strength exam: Left Upper Extremity: 5, Right Upper Extremity: 5, Left Lower Extremity: 5, Right Lower Extremity: 5 - Psychiatric Exam Psychiatric exam: Normal Affect, Normal Mood - Skin Skin Exam: Dry, Intact, Normal Color, Warm Assessment and Plan - Assessment and Plan (Free Text) Assessment: Mr Patten is a 58 yo male with PMH of HTn, DM2, Hypercholesterolemia, End stage renal disease on dialysis (T,T,S) was sent from dialysis due to patient had weakness, numbness on LEFT upper and lower limp and face with difficulty swallowing and blurry vision after having his dialysis done at 9 am 04/11/18. S /P Code stroke, admitted under observation for further evaluation of CVA vs TIA. Diagnosed with CVA with no residual effect Assessment S/P Code stroke Neurology on case Nephro on case Hx of uncontrolled HTN Patient physical exam is negative for motor/sensory deficit, CN I-IIX WNL Neuro cleared patient, will follow up as outpatient Patient Blood pressure uncontrolled ( >190 systolic) will keep today on observation to better control Head/Neck CTA: Moderate to severe distal left vertebral artery stenosis with left dominant vertebrobasilar circulation. Right vertebral and basilar arteries are widely patent. EKG: NSH left ventricular hypertrophy with repolarization abnormality ( no changes) Head CT: negative for acute infarct MRI head : Punctuate acute lacuna right frontal vertex. Multiple chronic lacunas identified at bilateral frontal and parietal lobes as well as at the left basal ganglia. A few scattered cavernous are suggested at the b/l frontal and left parietal lobe as well right occipital lobe. Plan Left sided numbness due to CVA with no residual effect Continue monitoring for acute exacerbation Continue Aspirin 81mg Start Plavix 75mg Control blood pressure, allow permissive htn manager monitoring Neuro cleared patient, will follow up as outpatient Accelerated HTN Chronic, uncontrolled Resume home medication allow Permissive Htn Hyperkalemia Potassium 5.6->5.3 Keyexalate ordered EKG: no acute changes Follow up CMP DM2 Chronic, Controlled HA1C: 6 Sliding scale hypoglycemic protocol Hypercholesterolemia Chronic, Controlled Continue home medication End stage renal disease on dialysis Chronic since 2010 (TTS) Pt is able to void Received Dialysis today, No Dialysis needed until Wed FU consult nephrology Dialysis tomorrow before DC DVT prophylaxis Heparin 5000 sc Q12 Full Code <Sachi Charlton - Last Filed: 04/12/18 17:18> Objective - Vital Signs/Intake and Output Vital Signs (last 24 hours): Temp Pulse Resp BP Pulse Ox 97.9 F 69 18 190/82 H 98 04/12/18 16:35 04/12/18 16:43 04/12/18 16:35 04/12/18 16:43 04/12/18 16:35 - Medications Medications: Current Medications Amlodipine Besylate (Norvasc) 10 mg PO DAILY [facility] Last Admin: 04/12/18 10:07 Dose: 10 mg Aspirin (Ecotrin) 81 mg PO DAILY [facility] Last Admin: 04/12/18 10:05 Dose: 81 mg Atorvastatin Calcium (Lipitor) 40 mg PO HS [facility] Last Admin: 04/11/18 21:33 Dose: 40 mg Clopidogrel Bisulfate (Plavix) 75 mg PO DAILY [facility] Last Admin: 04/12/18 10:07 Dose: 75 mg Dextrose (Dextrose 50% Inj) 0 ml IV STAT PRN; Protocol PRN Reason: Hypoglycemia Protocol Dextrose (Glutose 15) 0 gm PO ONCE PRN; Protocol PRN Reason: Hypoglycemia Protocol Glucagon (Glucagen Diagnostic Kit) 0 mg IM STAT PRN; Protocol PRN Reason: Hypoglycemia Protocol Heparin Sodium (Porcine) (Heparin) 5,000 units SC Q12 [facility]; Protocol Last Admin: 04/12/18 10:05 Dose: 5,000 units Hydralazine HCl (Apresoline) 50 mg PO Q8 [facility] Last Admin: 04/12/18 16:43 Dose: 50 mg Insulin Human Lispro (Humalog) 0 units SC ACHS [facility]; Protocol Last Admin: 04/12/18 16:37 Dose: Not Given Metoprolol Tartrate (Lopressor) 25 mg PO Q12 [facility] Last Admin: 04/12/18 10:07 Dose: 25 mg - Labs Labs: 04/12/18 04:50 04/12/18 11:27 PT 10.8 Seconds (9.8-13.1) 04/11/18 10:20 INR 1.0 04/11/18 10:20 APTT 31.1 Seconds (25.6-37.1) 04/11/18 10:20 Attending/Attestation - Attestation I have personally seen and examined this patient.: Yes I have fully participated in the care of the patient.: Yes I have reviewed all pertinent clinical information, including history, physical exam and plan: Yes
--- NOTE | 2018-04-12 16:44 | CP.PCM.DIS ---
<Osito Kline - Last Filed: 04/13/18 17:12> Provider - Provider Date of Admission: 04/11/18 12:07 Attending physician: Mara Brandt MD Primary care physician: Non [facility] Provider Time Spent in preparation of Discharge (in minutes): 20 Diagnosis - Discharge Diagnosis (1) CVA (cerebral vascular accident) Status: Acute (2) Accelerated hypertension Status: Acute (3) Diabetes insipidus Status: Chronic Hospital Course - Lab Results Lab Results: Most Recent Lab Values WBC 6.3 K/uL (4.8-10.8) 04/12/18 04:50 RBC 3.69 Mil/uL (4.40-5.90) L 04/12/18 04:50 Hgb 11.8 g/dL (12.0-18.0) L 04/12/18 04:50 Hct 36.5 % (35.0-51.0) 04/12/18 04:50 MCV 99.0 fl (80.0-94.0) H 04/12/18 04:50 MCH 31.9 pg (27.0-31.0) H 04/12/18 04:50 MCHC 32.3 g/dL (33.0-37.0) L 04/12/18 04:50 RDW 14.3 % (11.5-14.5) 04/12/18 04:50 Plt Count 154 K/uL (130-400) 04/12/18 04:50 MPV 10.2 fl (7.2-11.7) 04/11/18 10:20 Neut % (Auto) 59.7 % (50.0-75.0) 04/11/18 10:20 Lymph % (Auto) 25.3 % (20.0-40.0) 04/11/18 10:20 [place] % (Auto) 12.9 % (0.0-10.0) H 04/11/18 10:20 Eos % (Auto) 1.4 % (0.0-4.0) 04/11/18 10:20 Baso % (Auto) 0.7 % (0.0-2.0) 04/11/18 10:20 Neut # (Auto) 3.1 K/uL (1.8-7.0) 04/11/18 10:20 Lymph # (Auto) 1.3 K/uL (1.0-4.3) 04/11/18 10:20 [place] # (Auto) 0.7 K/uL (0.0-0.8) 04/11/18 10:20 Eos # (Auto) 0.1 K/uL (0.0-0.7) 04/11/18 10:20 Baso # (Auto) 0.0 K/uL (0.0-0.2) 04/11/18 10:20 PT 10.8 Seconds (9.8-13.1) 04/11/18 10:20 INR 1.0 04/11/18 10:20 APTT 31.1 Seconds (25.6-37.1) 04/11/18 10:20 Sodium 136 mmol/l (132-148) 04/12/18 11:27 Potassium 5.3 MMOL/L (3.6-5.0) H 04/12/18 11:27 Chloride 94 mmol/L (98-107) L 04/12/18 11:27 Carbon Dioxide 28 mmol/L (22-30) 04/12/18 11:27 Anion Gap 19 (10-20) 04/12/18 11:27 BUN 48 mg/dl (9-20) H 04/12/18 11:27 Creatinine 8.8 mg/dl (0.8-1.5) H* 04/12/18 11:27 Est GFR ( Amer) 8 04/12/18 11:27 Est GFR (Non-Af Amer) 6 04/12/18 11:27 POC Glucose (mg/dL) 79 mg/dL (65-110) 04/12/18 16:11 Random Glucose 216 mg/dL (75-110) H 04/12/18 11:27 Hemoglobin A1c 6.0 % (4.2-6.5) 04/11/18 10:20 Calcium 9.0 mg/dL (8.4-10.2) 04/12/18 11:27 Troponin I 0.0690 ng/mL (0.00-0.120) 04/11/18 10:20 Triglycerides 104 mg/DL (0-149) 04/11/18 10:20 Cholesterol 90 mg/dL (0-199) 04/11/18 10:20 LDL Cholesterol Direct 42 mg/dL (0-129) 04/11/18 10:20 HDL Cholesterol 39 MG/DL (30-70) 04/11/18 10:20 Urine Opiates Screen Negative (NEGATIVE) 04/11/18 16:11 Urine Methadone Screen Negative (NEGATIVE) 04/11/18 16:11 Ur Barbiturates Screen Negative (NEGATIVE) 04/11/18 16:11 Ur Phencyclidine Scrn Negative (NEGATIVE) 04/11/18 16:11 Ur Amphetamines Screen Negative (NEGATIVE) 04/11/18 16:11 U Benzodiazepines Scrn Negative (NEGATIVE) 04/11/18 16:11 U Oth Cocaine Metabols Negative (NEGATIVE) 04/11/18 16:11 U Cannabinoids Screen Negative (NEGATIVE) 04/11/18 16:11 - Hospital Course Hospital Course: Mr Patten is a 58 yo male with PMH of HTn, DM2, Hypercholesterolemia, end stage renal disease on dialysis (T,T,S) * able to void, was sent from dialysis due to patient had weakness, numbness on LEFT upper and lower limp and face with difficulty swallowing and blurry vision after having his dialysis done at 9 am 04/11/18. Admitted to telemetry to evaluate for CVA. upon arrival to ED Code stroke was called, Patient was out of window for TPA tx, CT scan was negative, EKG no acute changes, PT/PTT normal, and all blood lab were within normal limit. VItal BP was 196/97 patient received Lopressor and aspirin. Nephro and neuro were consulted.MRI was ordered, and was positive for punctuate acute lacuna right frontal vertex ( Complete reading at end of page.) Patient was seen and examined today. Patient had no acute event since last night, patient is able to swallow solid food and liquid with no difficulty, he have no problem breathing. Upon Vitals were WNL, and blood pressure trending down. Potassium was 5.6 keaxulate and ekg ordered , potassium is normalized, EKG no acute change. Physical examination is WNL CN II-XII, motor/sensory 5/5 and intact in all extremity. Neuro have cleared the patient, and recommended to start on Plavix 75mg and aspirin 81mg and follow up as outpatient clinic. Nephro seen patient and recommend D/C after Dialysis, follow up as outpatient clinic. Head/Neck CTA: Moderate to severe distal left vertebral artery stenosis with left dominant vertebrobasilar circulation. RIght vertebral and basilar arteries are widely patent. EKG: NSH left ventricular hypertrophy with repolarization abnormality ( no changes) Head CT: negative for acute infarct MRI head : Punctuate acute lacuna right frontal vertex. Multiple chronic lacunes identified at bilateral frontal and parietal lobes as well as at the left basal ganglia. A few scattered cavernomas are suggested at the b/l frontal and left parietal lobe as well right occipital lobe.Chronic lacune left external capsule identified as well as at right thalamus. age-related neuro degenerative changes are reiterated. Medication changed Hydralazine 50mg increase frequency from q12h to Q8H Add Plavix 75mg daily D/C Metformin due to END Stage renal disease and low glucose level Decrease Glipizide to 5mg PO once a day Continue All other home medication Patient chart were reviewed, patient stable and good to go home. Medical, Nephro and neuro team cleared patient to be discharged with Dx of CVA with no residual effect Follow up PCP in 1-2 days Discharge Exam - Head Exam Head Exam: ATRAUMATIC, NORMAL INSPECTION, NORMOCEPHALIC - Eye Exam Eye Exam: EOMI, Normal appearance, PERRL Pupil Exam: NORMAL ACCOMODATION, PERRL - Respiratory Exam Respiratory Exam: Clear to PA & Lateral, NORMAL BREATHING PATTERN, UNREMARKABLE - Cardiovascular Exam Cardiovascular Exam: REGULAR RHYTHM, +S1, +S2 - GI/Abdominal Exam GI & Abdominal Exam: Normal Bowel Sounds, Unremarkable - Back Exam Back exam: NORMAL INSPECTION - Neurological Exam Neurological exam: Alert, CN II-XII Intact, Normal Gait, Oriented x3 - Psychiatric Exam Psychiatric exam: Normal Affect, Normal Mood - Skin Skin Exam: Dry, Intact, Normal Color, Warm Discharge Plan - Discharge Medications Prescriptions: Clopidogrel [Plavix] 75 mg PO DAILY 30 Days tab GlipiZIDE [Glucotrol] 2.5 mg PO DAILY #30 tab hydrALAZINE [Apresoline] 50 mg PO Q8H #90 tab - Follow Up Plan Condition: GOOD Disposition: HOME/ ROUTINE Patient education suggested?: Yes Instructions: Stroke (DC), Hemodialysis (DC) Additional Instructions: follow up with pmd in 1 week continue dialysis [id number] Referrals: Juliet Jeffries MD [Staff Provider] - Mirela Mendez MD [Medical Doctor] - <Sachi Charlton - Last Filed: 04/13/18 17:30> Provider - Provider Date of Admission: 04/11/18 12:07 Attending physician: Mara Brandt MD Primary care physician: Non [facility] Provider Hospital Course - Lab Results Lab Results: Most Recent Lab Values WBC 6.3 K/uL (4.8-10.8) 04/12/18 04:50 RBC 3.69 Mil/uL (4.40-5.90) L 04/12/18 04:50 Hgb 11.8 g/dL (12.0-18.0) L 04/12/18 04:50 Hct 36.5 % (35.0-51.0) 04/12/18 04:50 MCV 99.0 fl (80.0-94.0) H 04/12/18 04:50 MCH 31.9 pg (27.0-31.0) H 04/12/18 04:50 MCHC 32.3 g/dL (33.0-37.0) L 04/12/18 04:50 RDW 14.3 % (11.5-14.5) 04/12/18 04:50 Plt Count 154 K/uL (130-400) 04/12/18 04:50 MPV 10.2 fl (7.2-11.7) 04/11/18 10:20 Neut % (Auto) 59.7 % (50.0-75.0) 04/11/18 10:20 Lymph % (Auto) 25.3 % (20.0-40.0) 04/11/18 10:20 [place] % (Auto) 12.9 % (0.0-10.0) H 04/11/18 10:20 Eos % (Auto) 1.4 % (0.0-4.0) 04/11/18 10:20 Baso % (Auto) 0.7 % (0.0-2.0) 04/11/18 10:20 Neut # (Auto) 3.1 K/uL (1.8-7.0) 04/11/18 10:20 Lymph # (Auto) 1.3 K/uL (1.0-4.3) 04/11/18 10:20 [place] # (Auto) 0.7 K/uL (0.0-0.8) 04/11/18 10:20 Eos # (Auto) 0.1 K/uL (0.0-0.7) 04/11/18 10:20 Baso # (Auto) 0.0 K/uL (0.0-0.2) 04/11/18 10:20 PT 10.8 Seconds (9.8-13.1) 04/11/18 10:20 INR 1.0 04/11/18 10:20 APTT 31.1 Seconds (25.6-37.1) 04/11/18 10:20 Sodium 134 mmol/l (132-148) 04/13/18 04:40 Potassium 5.1 MMOL/L (3.6-5.0) H 04/13/18 04:40 Chloride 92 mmol/L (98-107) L 04/13/18 04:40 Carbon Dioxide 29 mmol/L (22-30) 04/13/18 04:40 Anion Gap 18 (10-20) 04/13/18 04:40 BUN 57 mg/dl (9-20) H 04/13/18 04:40 Creatinine 10.7 mg/dl (0.8-1.5) H* D 04/13/18 04:40 Est GFR ( Amer) 6 04/13/18 04:40 Est GFR (Non-Af Amer) 5 04/13/18 04:40 POC Glucose (mg/dL) 125 mg/dL (65-110) H 04/13/18 16:27 Random Glucose 141 mg/dL (75-110) H 04/13/18 04:40 Hemoglobin A1c 6.0 % (4.2-6.5) 04/11/18 10:20 Calcium 9.1 mg/dL (8.4-10.2) 04/13/18 04:40 Total Bilirubin 0.3 mg/dl (0.2-1.3) 04/13/18 04:40 AST 11 U/L (17-59) L 04/13/18 04:40 ALT 20 U/L (21-72) L 04/13/18 04:40 Alkaline Phosphatase 69 U/L (38-126) 04/13/18 04:40 Troponin I 0.0690 ng/mL (0.00-0.120) 04/11/18 10:20 Total Protein 6.8 G/DL (6.3-8.2) 04/13/18 04:40 Albumin 3.9 g/dL (3.5-5.0) 04/13/18 04:40 Globulin 2.9 gm/dL (2.2-3.9) 04/13/18 04:40 Albumin/Globulin Ratio 1.3 (1.0-2.1) 04/13/18 04:40 Triglycerides 104 mg/DL (0-149) 04/11/18 10:20 Cholesterol 90 mg/dL (0-199) 04/11/18 10:20 LDL Cholesterol Direct 42 mg/dL (0-129) 04/11/18 10:20 HDL Cholesterol 39 MG/DL (30-70) 04/11/18 10:20 Urine Opiates Screen Negative (NEGATIVE) 04/11/18 16:11 Urine Methadone Screen Negative (NEGATIVE) 04/11/18 16:11 Ur Barbiturates Screen Negative (NEGATIVE) 04/11/18 16:11 Ur Phencyclidine Scrn Negative (NEGATIVE) 04/11/18 16:11 Ur Amphetamines Screen Negative (NEGATIVE) 04/11/18 16:11 U Benzodiazepines Scrn Negative (NEGATIVE) 04/11/18 16:11 U Oth Cocaine Metabols Negative (NEGATIVE) 04/11/18 16:11 U Cannabinoids Screen Negative (NEGATIVE) 04/11/18 16:11 Attending/Attestation - Attestation I have personally seen and examined this patient.: Yes I have fully participated in the care of the patient.: Yes I have reviewed all pertinent clinical information, including history, physical exam and plan: Yes
[2018-04-13 05:49] LABS: ALB/GLOB RATIO 1.3 (1.0-2.1); ALBUMIN 3.9 g/dL (3.5-5.0); CALCIUM 9.1 mg/dL (8.4-10.2)
[2018-04-13] MEDS: Insulin Lispro (humaLOG) 100 Units/ml Inj SC SCH ×2 (07:30→13:06)
[2018-04-13] MEDS ORDERED: EPOETIN ALFA 10,000 UNIT/ML ML SC SCH ×2 (09:00)
--- NOTE | 2018-04-13 16:55 | CP.PCM.PN ---
Subjective - Date & Time of Evaluation Date of Evaluation: 04/13/18 Time of Evaluation: 16:54 - Subjective Subjective: pt is feeling better, no complaints, no sob, no h/s, no dizyness, s/p hemodialysis today Objective - Vital Signs/Intake and Output Vital Signs (last 24 hours): Temp Pulse Resp BP Pulse Ox 98.2 F 65 20 189/87 H 99 04/13/18 13:11 04/13/18 13:11 04/13/18 13:11 04/13/18 13:11 04/13/18 13:11 - Medications Medications: Current Medications Amlodipine Besylate (Norvasc) 10 mg PO DAILY [facility] Last Admin: 04/13/18 09:49 Dose: 10 mg Aspirin (Ecotrin) 81 mg PO DAILY [facility] Last Admin: 04/13/18 09:47 Dose: 81 mg Atorvastatin Calcium (Lipitor) 40 mg PO HS [facility] Last Admin: 04/12/18 22:30 Dose: 40 mg Clopidogrel Bisulfate (Plavix) 75 mg PO DAILY [facility] Last Admin: 04/13/18 09:49 Dose: 75 mg Dextrose (Dextrose 50% Inj) 0 ml IV STAT PRN; Protocol PRN Reason: Hypoglycemia Protocol Dextrose (Glutose 15) 0 gm PO ONCE PRN; Protocol PRN Reason: Hypoglycemia Protocol Doxercalciferol (Hectorol) 2 mcg PO MWF [facility] Last Admin: 04/13/18 09:48 Dose: 2 mcg Epoetin Robert (Procrit) 10,000 unit SC MWF [facility] Last Admin: 04/13/18 14:04 Dose: 10,000 unit Glucagon (Glucagen Diagnostic Kit) 0 mg IM STAT PRN; Protocol PRN Reason: Hypoglycemia Protocol Heparin Sodium (Porcine) (Heparin) 5,000 units SC Q12 [facility]; Protocol Last Admin: 04/13/18 09:48 Dose: 5,000 units Hydralazine HCl (Apresoline) 50 mg PO Q8 [facility] Last Admin: 04/13/18 09:47 Dose: Not Given Insulin Human Lispro (Humalog) 0 units SC [facility]; Protocol Last Admin: 04/13/18 13:06 Dose: 3 units Metoprolol Tartrate (Lopressor) 25 mg PO Q12 [facility] Last Admin: 04/13/18 09:49 Dose: Not Given - Labs Labs: 04/12/18 04:50 04/13/18 04:40 PT 10.8 Seconds (9.8-13.1) 04/11/18 10:20 INR 1.0 04/11/18 10:20 APTT 31.1 Seconds (25.6-37.1) 04/11/18 10:20 - Constitutional Appears: Well, Non-toxic, No Acute Distress - Head Exam Head Exam: ATRAUMATIC, NORMAL INSPECTION, NORMOCEPHALIC - Eye Exam Eye Exam: EOMI, Normal appearance, PERRL Pupil Exam: NORMAL ACCOMODATION - ENT Exam ENT Exam: Mucous Membranes Moist - Neck Exam Neck Exam: Full ROM, Normal Inspection - Respiratory Exam Respiratory Exam: Clear to Ausculation Bilateral, NORMAL BREATHING PATTERN - Cardiovascular Exam Cardiovascular Exam: REGULAR RHYTHM, +S1, +S2 - GI/Abdominal Exam GI & Abdominal Exam: Soft, Normal Bowel Sounds - Rectal Exam Rectal Exam: Deferred - Extremities Exam Extremities Exam: Normal Inspection Additional comments: no edema - Neurological Exam Neurological Exam: Alert, Awake, CN II-XII Intact, Normal Gait, Oriented x3 - Psychiatric Exam Psychiatric exam: Normal Affect - Skin Skin Exam: Normal Color, Warm Assessment and Plan - Assessment and Plan (Free Text) Assessment: 58 yo HM with pmh/o htn, dm, sec. hpth, TIA, esrd on hd since 2010 was admitted with left sided weakness 1. ESRD 2. HTN 3. DM 4. Hyperkalemia 5. TIA fs/p hemodialysis this afternoon c/w current anti htn meds, and titrate as needed follow up with neurology stable from renal standpoint Plan:
[2018-04-13 17:11] VITALS: BP 162/85; PULSE 68; RESP 18; TEMP 98.3; O2SAT 98
== END 2018-04-13 17:30 | disposition home or self-care (01) ==
LOC: H.ER 09:56 → SUPCPDRO 09:56 → H.ERHOLD 12:07 → H.TEL 16:20
PROVIDERS: ADMIT Hospitalist; ATTEND Hospitalist
DX: I63.81 Other cerebral infarction due to occlusion or stenosis of small artery (principal); G81.94 Hemiplegia, unspecified affecting left nondominant side; R29.700 NIHSS score 0; N18.6 End stage renal disease; Z79.02 Long term (current) use of antithrombotics/antiplatelets; E11.22 Type 2 diabetes mellitus with diabetic chronic kidney disease; Z99.2 Dependence on renal dialysis; E87.5 Hyperkalemia; E78.00 Pure hypercholesterolemia, unspecified; N25.81 Secondary hyperparathyroidism of renal origin; I12.0 Hypertensive chronic kidney disease with stage 5 chronic kidney disease or end stage renal disease; Z79.84 Long term (current) use of oral hypoglycemic drugs; Z79.82 Long term (current) use of aspirin; I65.02 Occlusion and stenosis of left vertebral artery
CPT/HCPCS: 36415; 70450; 70496; 70498; 70551; 80048; 80053; 80061; 82948; 83036; 84484; 85025; 85027; 85610; 85730; 93005; 96374; 97161; 99284; G0378; G0480; G8978; G8979; G8980; J0360; J0885; J1644; Q9967

== ENCOUNTER 2018-10-04 11:42 | Inpatient (IN) | payer MEDICAID, OTHER ==
[2018-10-04 11:42] VITALS: BMI 25.7
--- NOTE | 2018-10-04 12:29 | ED PDOC ---
HPI:STROKE - Time Time: 12:27 - Historian Historian: Patient - Chief Complaint Chief Complaint: Numbness (Left arm since 9:30 AM today. Has improved since arrival to ED) - Onset Date: 10/04/18 Time: 09:30 Onset: Hours (3) - Timing Timing: Improved - Location Locate left: Upper extremity - Severity of pain Maximum severity:: Mild Pain Scale:: 0 Severity Current: None Pain Scale:: 0 - Exacerbated by Exacerbated by:: Nothing - TPA Positive for Contraindication: No Reason tPA is not being Administered: Sxs resolved NIHSS Stroke Scale - Date/Time Evaluation Performed Date Performed: 10/04/18 Time Performed: 12:15 When Was NIHSS Performed: Baseline - How Severe is the Stroke Level of Consciousness: 0=Alert LOC to Questions: 0=Both comments correct LOC to commands: 0=Obeys both correctly Best Gaze: 0=Normal Visual: 0=No visual loss Facial: 0=Normal Motor Arm - Left: 0=No drift Motor Arm - Right: 0=No drift Motor Leg - Left: 0=No drift Motor Leg - Right: 0=No drift Limb Ataxia: 0=Absent Sensory: 0=Normal Best Language: 0=No aphasia Dysarthia: 0=Normal articulation Extinction & Inattention (Neglect): 0=Normal, no object Score: 0 rTPA Inclusion/Exclusion - Refusal of Treatment Patient Refused Treatment: No - Inclusion Criteria for Altepase Patient is 18 years or Older: Yes The Clinical Diagnosis of Ischemic Stroke That is Causing a Potentially Disabling Neurological Deficit: Yes Time of Onset is Well Established to be Less Than 270 Minute Before Treatment Would Begin: Yes Risk/Benefit Discussed With Patient/Family Member Present: No Past Medical History Vital Signs: Last Vital Signs Temp 97.8 F 10/04/18 11:55 Pulse 65 10/04/18 11:55 Resp 16 10/04/18 11:55 BP 191/91 H 10/04/18 11:55 Pulse Ox 99 10/04/18 11:55 Primary Care Provider: FAMILY PROVIDER,NO - Medical History PMH: CVA, HTN, Hypercholesterolemia, Chronic Kidney Disease - Family History Family History: States: Unknown Family Hx - Home Medications Home Medications: Ambulatory Orders Medication Instructions Recorded Aspirin [Ecotrin] 81 mg PO DAILY 04/11/18 Atorvastatin [Lipitor] 20 mg PO HS 04/11/18 Cinacalcet [Sensipar] 30 mg PO DAILY 04/11/18 Metoprolol Tartrate [Lopressor] 25 mg PO Q12 04/11/18 Sevelamer Carbonate [Renvela] 1,600 mg PO TID 04/11/18 amLODIPine [Norvasc] 10 mg PO DAILY 04/11/18 hydrALAZINE [Apresoline] 50 mg PO Q12 04/11/18 Clopidogrel [Plavix] 75 mg PO DAILY 30 Days tab 04/12/18 Epoetin Robert [Procrit] 10,000 unit SC MWF ml 04/13/18 GlipiZIDE [Glucotrol] 2.5 mg PO DAILY #30 tab 04/13/18 hydrALAZINE [Apresoline] 50 mg PO Q8H #90 tab 04/13/18 - Allergies Allergies/Adverse Reactions: Allergies Allergy/AdvReac Type Severity Reaction Status Date / Time No Known Allergies Allergy Verified 10/04/18 11:55 Review of Systems ROS Statement: Except As Marked, All Systems Reviewed And Found Negative Neurological: Positive for: Numbness (Left arm/hand) Physical Exam - Reviewed Nursing Documentation Reviewed: Yes Vital Signs Reviewed: Yes - Physical Exam Appears: Positive for: Non-toxic, No Acute Distress Head Exam: Positive for: ATRAUMATIC, NORMAL INSPECTION, NORMOCEPHALIC Skin: Positive for: Normal Color, Warm, DRY Eye Exam: Positive for: EOMI, Normal appearance, PERRL ENT: Positive for: Normal ENT Inspection Neck: Positive for: Normal, Painless ROM Cardiovascular/Chest: Positive for: Regular Rate, Rhythm Respiratory: Positive for: CNT, Normal Breath Sounds Gastrointestinal/Abdominal: Positive for: Normal Exam, Soft Back: Positive for: Normal Inspection Extremity: Positive for: Normal ROM Neurological/Psych: Positive for: Awake, Alert, Normal Tone. Negative for: Motor/Sensory Deficits - ECG O2 Sat by Pulse Oximetry: 99 Disposition - Clinical Impression Clinical Impression: TIA (transient ischemic attack) - Patient ED Disposition Is Patient to be Admitted: Yes - Disposition Disposition Time: 12:39 Condition: FAIR Forms: [facility] ([place]) - Pt Status Changed To: Hospital Disposition Of: Observation - POA Present On Arrival: None
--- NOTE | 2018-10-04 12:41 | CT ---
Date of service: 10/04/2018 PROCEDURE: CT HEAD WITHOUT CONTRAST. HISTORY: TIA, initial exam COMPARISON: Unenhanced head CT and Brain MRI both from 04/11/2018. TECHNIQUE: Axial computed tomography images were obtained through the head/brain without intravenous contrast. Radiation dose: Total exam DLP = 768.14 mGy-cm. This CT exam was performed using one or more of the following dose reduction techniques: Automated exposure control, adjustment of the mA and/or kV according to patient size, and/or use of iterative reconstruction technique. FINDINGS: HEMORRHAGE: No intracranial hemorrhage. BRAIN: Good corticomedullary differentiation is seen. Reiterated diffuse cerebral atrophy and chronic microangiopathy. No suspicious extra-axial fluid collection is identified and the midline brain anatomy appears grossly nonfocal as imaged. No mass effect identified. VENTRICLES: Unremarkable. No hydrocephalus. CALVARIUM: Unremarkable. PARANASAL SINUSES: Unremarkable as visualized. No significant inflammatory changes. MASTOID AIR CELLS: Unremarkable as visualized. No inflammatory changes. OTHER FINDINGS: Incidental interval false global right orbit with lucent scleral band. Otherwise, hyperdensity within the right globe may reflect interval hemorrhage, though this is not favored IMPRESSION: Stable age related neuro degenerative change are identified as well as left external capsule chronic lacune. 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 Further clinical correlation advised. Findings discussed with Dr. Ro with written down and read back verification 10/04/2018 12:31 p.m..
[2018-10-04 12:44] LABS: BASO # 0.1 K/uL (0.0-0.2); BASO % 0.8 % (0.0-2.0); EOS # 0.3 K/uL (0.0-0.7); EOS % 4.5 % (0.0-4.0); HEMOGLOBIN 12.5 g/dL (12.0-18.0); LYMPH # 1.2 K/uL (1.0-4.3); LYMPH % 18.1 % (20.0-40.0); MEAN CELL VOLUME 96.9 fl (80.0-94.0); MEAN CORPUSCULAR HEMOGLOBIN 32.3 pg (27.0-31.0); MEAN CORPUSCULAR HGB CONC 33.3 g/dL (33.0-37.0); MEAN PLATELET VOLUME 9.2 fl (7.2-11.7); MONO # 0.8 K/uL (0.0-0.8); MONO % 11.5 % (0.0-10.0); NEUT # 4.4 K/uL (1.8-7.0); NEUT % 65.1 % (50.0-75.0); NRBC % 0.2 % (0.0-0.0); RBC 3.89 Mil/uL (4.40-5.90); RED CELL DISTRIBUTION WIDTH 16.6 % (11.5-14.5); WHITE BLOOD COUNT 6.7 K/uL (4.8-10.8)
--- NOTE | 2018-10-04 12:45 | RAD ---
Date of service: 10/04/2018 HISTORY: Code Stroke COMPARISON: No prior. FINDINGS: LUNGS: No active pulmonary disease. PLEURA: No significant pleural effusion identified, no pneumothorax apparent. CARDIOVASCULAR: No atherosclerotic calcification present No radiographic findings to suggest acute or significant cardiovascular disease. OSSEOUS STRUCTURES: No significant abnormalities. VISUALIZED UPPER ABDOMEN: Normal. OTHER FINDINGS: None. IMPRESSION: No active disease.
[2018-10-04] MEDS: Sodium Chloride 0.9% 1,000 ML IV SCH ×2 (13:00→23:32)
[2018-10-04 13:11] LABS: ALB/GLOB RATIO 1.3 (1.0-2.1); ALBUMIN 4.8 g/dL (3.5-5.0)
[2018-10-04 13:17] LABS: TROPONIN I 0.048 ng/mL (0.00-0.120)
--- NOTE | 2018-10-04 14:53 | MRI ---
Date of service: 10/04/2018 PROCEDURE: Magnetic Resonance Angiography Brain HISTORY: TIA COMPARISON: CT head and neck 04/11/2018. TECHNIQUE: 3D time of flight MR angiography of the intracranial arteries was performed. Rotating maximum intensity projection images were generated. FINDINGS: INTERNAL CAROTID ARTERIES: Unremarkable. The skull base, petrous, cavernous and supraclinoid segments are bilaterally widely patient. ANTERIOR CEREBRAL ARTERIES: Unremarkable. A1 and A2 segments are widely patent. Smaller distal branches unremarkable, as visualized. MIDDLE CEREBRAL ARTERIES: Unremarkable. M1 and M2 segments are widely patent. Perisylvian branches grossly symmetric. POSTERIOR CIRCULATION: Basilar Artery: Unremarkable. Distal Vertebral Arteries: Left dominant vertebral circulation. Mild left vertebral artery stenosis as compared to prior prominent stenosis on CT angiography. Posterior Cerebral Arteries: Unremarkable. Posterior Inferior Cerebellar Arteries: Unremarkable. ANEURYSM/ VASCULAR MALFORMATIONS: None. OTHER FINDINGS: None. IMPRESSION: No large vessel branch occlusion is appreciated at the intracranial space once again. Mild distal left vertebral artery stenosis appreciated with left dominant vertebrobasilar circulation present. Prior CT angiogram 04/11/2018 suggested a high-grade stenosis distal left vertebral artery in the same location.
--- NOTE | 2018-10-04 15:08 | CP.PCM.HP ---
<LeKevinTammie - Last Filed: 10/04/18 16:28> History of Present Illness - History of Present Illness History of Present Illness: 58 y/o male with PMH of HTN, DM2, Hypercholesterolemia, and ESRD on HD (T, TH, S) presents for elevated BP at home (217/100) and associated left upper- extremity numbness which became right upper extremity numbness, both of which resolved prior to arrival to ED. He has had 2 previous strokes - Mar and Apr 2018 - with no residual deficits as per patient. Denies change in vision, CP, SOB, dizziness, numbness, tingling, weakness, nausea and vomiting. Adherent with dialysis and medications as per patient. PMD: in [facility] [employer]: Juliet Jeffries Medication: Aspirin 81, Atorvastatin 20mg, Cinacalcet 30mg, GlipiZIDE 5 mg, Metoprolol Tartrate 25 mg, Sevelamer Carbonate 1,600 mg, amLODIPine 10 mg, hydrALAZINE 50 mg Q8 Allergy: none PMH: end stage renal disease on dialysis since 2010, Hypercholesterolemia, CKD, HTN PSH: AV shunt on right arm, dialysis, right eye surgery (specifics unknown) May 2018 PFH: sisters (x3) - DM & HTN Social: Denies etoh, tobacco and illicit drug use. 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 punctate acute or subacute infarct posterior right parietal lobe. No lobar brain infarction appreciable. Chronic lacune left external capsule reiterated. 2. Age related neuro degenerative changes appear somewhat prominent once again. No white matter changes appear relatively extensive once again and may even in fact involve the callososeptal interface accordingly, prior history of demyelination is not completely excluded and clinical correlation is recommended. Overall brain aprenchymal pattern is stable compared to prior MRI 04/11/18 with exception of punctate infarct right parietal lobe. Head MRA: No large vessel branch occlusion is appreciated at the intracranial space once again. Mild distal left vertebral artery stenosis appreciated with left dominant vertebrobasilar circulation present. Prior CT angio 04/11/18 suggested a high-grade stenosis distal left vertebral artery in the same location. Present on Admission - Present on Admission Any Indicators Present on Admission: No Review of Systems - Review of Systems Review of Systems: all other systems reviewed and negative unless noted in HPI Past Patient History - Infectious Disease Hx of Infectious Diseases: None - Past Medical History & Family History Past Medical History?: Yes - Past Social History Smoking Status: Never Smoked - CARDIAC Hx Hypercholesterolemia: Yes Hx Hypertension: Yes - RENAL Hx Chronic Kidney Disease: Yes - ENDOCRINE/METABOLIC Hx Diabetes Mellitus Type 2: Yes - MUSCULOSKELETAL/RHEUMATOLOGICAL Hx Falls: No - PSYCHIATRIC Hx Substance Use: No Meds Allergies/Adverse Reactions: Allergies Allergy/AdvReac Type Severity Reaction Status Date / Time No Known Allergies Allergy Verified 10/04/18 11:55 Physical Exam - Constitutional Appears: Non-toxic, No Acute Distress - Head Exam Head Exam: ATRAUMATIC, NORMAL INSPECTION - Eye Exam Eye Exam: Conjunctival injection (right - surgery (unknown specifics) May) - ENT Exam ENT Exam: Mucous Membranes Moist - Respiratory Exam Respiratory Exam: NORMAL BREATHING PATTERN. absent: Respiratory Distress - Cardiovascular Exam Cardiovascular Exam: REGULAR RHYTHM - GI/Abdominal Exam GI & Abdominal Exam: Soft. absent: Tenderness - Extremities Exam Extremities exam: Positive for: normal inspection - Neurological Exam Neurological exam: Alert, Oriented x3 - Expanded Neurological Exam Expanded Patient oriented to: person, place, time Neuro motor strength exam: Left Upper Extremity: 5, Right Upper Extremity: 5, Left Lower Extremity: 5, Right Lower Extremity: 5 - Psychiatric Exam Psychiatric exam: Normal Affect, Normal Mood - Skin Skin Exam: Normal Color, Warm Results - Vital Signs Recent Vital Signs: Last Vital Signs Temp 97.8 F 10/04/18 11:55 Pulse 65 10/04/18 11:55 Resp 16 10/04/18 11:55 BP 191/91 H 10/04/18 11:55 Pulse Ox 99 10/04/18 12:40 - Labs Result Diagrams: 10/04/18 12:30 10/04/18 12:30 Labs: Laboratory Results - last 24 hr 10/04/18 10/04/18 10/04/18 12:16 12:30 12:30 WBC 6.7 RBC 3.89 L Hgb 12.5 Hct 37.7 MCV 96.9 H D MCH 32.3 H MCHC 33.3 RDW 16.6 H Plt Count 168 MPV 9.2 Neut % (Auto) 65.1 Lymph % (Auto) 18.1 L [place] % (Auto) 11.5 H Eos % (Auto) 4.5 H Baso % (Auto) 0.8 Neut # (Auto) 4.4 Lymph # (Auto) 1.2 [place] # (Auto) 0.8 Eos # (Auto) 0.3 Baso # (Auto) 0.1 PT INR APTT Sodium 136 Potassium 5.0 Chloride 91 L Carbon Dioxide 28 Anion Gap 22 H BUN 53 H Creatinine 8.6 H* Est GFR ( Amer) 8 Est GFR (Non-Af Amer) 6 POC Glucose (mg/dL) 199 H Random Glucose 192 H Calcium 9.0 Total Bilirubin 0.6 AST 23 ALT 17 L Alkaline Phosphatase 82 Troponin I 0.0480 Total Protein 8.4 H Albumin 4.8 Globulin 3.6 Albumin/Globulin Ratio 1.3 Triglycerides 201 H D Cholesterol 159 LDL Cholesterol Direct 57 HDL Cholesterol 34 Blood Type Blood Type Confirm Antibody Screen BBK History Checked 10/04/18 10/04/18 10/04/18 12:30 12:30 13:00 WBC RBC Hgb Hct MCV MCH MCHC RDW Plt Count MPV Neut % (Auto) Lymph % (Auto) [place] % (Auto) Eos % (Auto) Baso % (Auto) Neut # (Auto) Lymph # (Auto) [place] # (Auto) Eos # (Auto) Baso # (Auto) PT 11.0 INR 1.0 APTT 34.0 Sodium Potassium Chloride Carbon Dioxide Anion Gap BUN Creatinine Est GFR ( Amer) Est GFR (Non-Af Amer) POC Glucose (mg/dL) Random Glucose Calcium Total Bilirubin AST ALT Alkaline Phosphatase Troponin I Total Protein Albumin Globulin Albumin/Globulin Ratio Triglycerides Cholesterol LDL Cholesterol Direct HDL Cholesterol Blood Type A POSITIVE Blood Type Confirm A POSITIVE Antibody Screen Negative BBK History Checked No verified bt Assessment & Plan - Assessment and Plan (Free Text) Assessment: 58 y/o male with PMH of HTN, DM2, Hypercholesterolemia, and ESRD on HD (T, TH, S) presents for elevated BP at home (217/100) and associated left upper- extremity numbness which became right upper extremity numbness, both of which resolved prior to arrival to ED. Brain MRI: 1. punctate acute or subacute infarct posterior right parietal lobe. No lobar brain infarction appreciable. Chronic lacune left external capsule reiterated. 2. Age related neuro degenerative changes appear somewhat prominent once again. No white matter changes appear relatively extensive once again and may even in fact involve the callososeptal interface accordingly, prior history of demyelination is not completely excluded and clinical correlation is recommended. Overall brain aprenchymal patterm is stable compared to prior MRI 04/11/18 with exception of punctate infarct right parietal lobe. Head MRA: No large vessel branch occlusion is appreciated at the intracranial space once again. Mild distal left vertebral artery stenosis appreciated with left dominant vertebrobasilar circulation present. Prior CT angio 04/11/18 suggested a high-grade stenosis distal left vertebral artery in the same location. Plan: CVA -S/P code stroke -admit to tele for observation -Brain MRI: infarct posterior right parietal lobe -neuro consulted, inputs and recs appreciated ---recs: ECHO w/bubble, HbA1C, lipid, b12, folate, TSH, vit d; plavix loading dose followed by 75 mg daily, lipitor 40mg -s/p Plavix 300mg -c/w Plavix 75mg daily -c/w home meds: Aspirin 81 -PT/OT consulted, input and recs appreciated -IVF NS @100 ml/hr HTN -holds home meds: Metoprolol Tartrate 25 mg, amLODIPine 10 mg, hydrALAZINE 50 mg TID -monitor, allow permissive HTN only treat BP higher than 220/110 mm Hg for the next 36 hours ESRD -dialysis since 2010 -c/w home meds: Cinacalcet 30mg, Sevelamer Carbonate 1,600 mg -c/w dialysis -f/u BMP DM2 -continue w/home meds: GlipiZIDE 5 mg, -ACHS, insulin sliding scale -hypoglycemia protocol Hypercholesterolemia -c/w home meds: Atorvastatin 40mg DVT Prophylaxis -SCD <Vinod Meneses D - Last Filed: 10/04/18 17:44> Results - Vital Signs Recent Vital Signs: Last Vital Signs Temp 97.7 F 10/04/18 17:25 Pulse 65 10/04/18 17:25 Resp 18 10/04/18 17:25 BP 179/80 H 10/04/18 17:25 Pulse Ox 99 10/04/18 17:25 - Labs Result Diagrams: 10/04/18 12:30 10/04/18 12:30 Labs: Laboratory Results - last 24 hr 10/04/18 10/04/18 10/04/18 12:16 12:30 12:30 WBC 6.7 RBC 3.89 L Hgb 12.5 Hct 37.7 MCV 96.9 H D MCH 32.3 H MCHC 33.3 RDW 16.6 H Plt Count 168 MPV 9.2 Neut % (Auto) 65.1 Lymph % (Auto) 18.1 L [place] % (Auto) 11.5 H Eos % (Auto) 4.5 H Baso % (Auto) 0.8 Neut # (Auto) 4.4 Lymph # (Auto) 1.2 [place] # (Auto) 0.8 Eos # (Auto) 0.3 Baso # (Auto) 0.1 PT INR APTT Sodium 136 Potassium 5.0 Chloride 91 L Carbon Dioxide 28 Anion Gap 22 H BUN 53 H Creatinine 8.6 H* Est GFR ( Amer) 8 Est GFR (Non-Af Amer) 6 POC Glucose (mg/dL) 199 H Random Glucose 192 H Calcium 9.0 Total Bilirubin 0.6 AST 23 ALT 17 L Alkaline Phosphatase 82 Troponin I 0.0480 Total Protein 8.4 H Albumin 4.8 Globulin 3.6 Albumin/Globulin Ratio 1.3 Triglycerides 201 H D Cholesterol 159 LDL Cholesterol Direct 57 HDL Cholesterol 34 Blood Type Blood Type Confirm Antibody Screen BBK History Checked 10/04/18 10/04/18 10/04/18 12:30 12:30 13:00 WBC RBC Hgb Hct MCV MCH MCHC RDW Plt Count MPV Neut % (Auto) Lymph % (Auto) [place] % (Auto) Eos % (Auto) Baso % (Auto) Neut # (Auto) Lymph # (Auto) [place] # (Auto) Eos # (Auto) Baso # (Auto) PT 11.0 INR 1.0 APTT 34.0 Sodium Potassium Chloride Carbon Dioxide Anion Gap BUN Creatinine Est GFR ( Amer) Est GFR (Non-Af Amer) POC Glucose (mg/dL) Random Glucose Calcium Total Bilirubin AST ALT Alkaline Phosphatase Troponin I Total Protein Albumin Globulin Albumin/Globulin Ratio Triglycerides Cholesterol LDL Cholesterol Direct HDL Cholesterol Blood Type A POSITIVE Blood Type Confirm A POSITIVE Antibody Screen Negative BBK History Checked No verified bt Attending/Attestation - Attestation I have personally seen and examined this patient.: Yes I have fully participated in the care of the patient.: Yes I have reviewed all pertinent clinical information: Yes Notes (Text): 10/04/18 17:44 Patient seen and examined with resident. Case discussed and agreed with asses sment and plan of management
--- NOTE | 2018-10-04 15:26 | MRI ---
Date of service: 10/04/2018 PROCEDURE: MRI BRAIN WITHOUT CONTRAST HISTORY: TIA COMPARISON: Brain MRI without contrast 04/11/2018. TECHNIQUE: Multiplanar, multisequence MR images of the brain were obtained without intravenous contrast enhancement. FINDINGS: HEMORRHAGE: None DWI: Interval punctate infarct right parietal lobe posteriorly. No lobar brain infarction appreciable. BRAIN PARENCHYMA: Extensive periventricular subcortical white matter soft tissue abnormalities are appreciated once again presumably on the basis of advanced chronic microangiopathy though other etiologies are not completely excluded including potential prior demyelination presenting at a far earlier age. Clinically correlate further. Diffuse cerebral atrophy is reiterated. No mass effect. No suspicious extra-axial collection. Posterior fossa contents remain unremarkable as well as the brainstem. Small chronic lacune is seen at the left external capsule and scattered cavernomas are reiterated bilaterally as cerebral hemispheres infrequently. VENTRICLES: Unremarkable. No hydrocephalus. CRANIUM: Unremarkable. ORBITS: Grossly unremarkable. PARANASAL SINUSES/MASTOIDS: Clear VASCULAR SYSTEM: Skull base flow voids intact. OTHER FINDINGS: None. IMPRESSION: 1. A punctate acute or subacute infarct posterior right parietal lobe. No lobar brain infarction appreciable. Chronic lacune left external capsule reiterated. 2. Age-related neuro degenerative changes appear somewhat prominent once again. No, white-matter changes appear relatively extensive once again and may even in fact involve the callososeptal interface accordingly, prior history of demyelination is not completely excluded and clinical correlation is recommended. Overall brain parenchymal pattern is stable compared to prior MRI 04/11/2018 with exception of punctate infarct right parietal lobe.
[2018-10-04] MEDS ORDERED: Glucagon Recombinant 1 mg Inj IM PRN (15:57)
[2018-10-04] MEDS ORDERED: Dextrose 50% SYRINGE Inj (50 ml) IV PRN (15:57)
[2018-10-04] MEDS ORDERED: Enoxaparin 40 mg Syringe SC SCH (16:00)
--- NOTE | 2018-10-04 16:11 | CP.PCM.CON ---
History of Present Illness - History of Present Illness History of Present Illness: Neurology Consultation Note: consult requested by Dr. Godoy Mr. Patten is a 58-year-old man with a past medical history of HTN, DM2, HLD, and ESRD on HD, previous ischemic strokes with no residual deficits, who presented to the ED after left side numbness that resolved. His BP was elevated at home to the 200's systolic range. CT scan of the head did not show any acute findings. However, MRI brain did show a right posterior parietal lobe punctate infarct. MRA of the head was consistent with left vertebral artery stenosis. The patient continues to be asymptomatic at this time. Review of Systems - Constitutional Constitutional: As Per HPI - EENT Eyes: absent: As Per HPI, Blind Spots, Blurred Vision, Change in Vision, D ecreased Night Vision, Diplopia, Discharge, Dry Eye, Exophthalmos, Floaters, Irritation, Itchy Eyes, Loss of Peripheral Vision, Pain, Photophobia, Requires Corrective Lenses, Sees Flashes, Spots in Vision, Tunnel Vision, Other Visual Disturbances, Loss of Vision, Other Ears: absent: As Per HPI, Decreased Hearing, Ear Discharge, Ear Pain, Tinnitus, Abnormal Hearing, Disequilibrium, Dizziness, Other Nose/Mouth/Throat: absent: As Per HPI, Epistaxis, Nasal Congestion, Nasal Discharge, Nasal Obstruction, Nasal Trauma, Nose Pain, Post Nasal Drip, Sinus Pain, Sinus Pressure, Bleeding Gums, Change in Voice, Dental Pain, Dry Mouth, Dysphagia, Halitosis, Hoarsness, Lip Swelling, Mouth Lesions, Mouth Pain, Odynophagia, Sore Throat, Throat Swelling, Tongue Swelling, Facial Pain, Neck Pain, Neck Mass, Other - Cardiovascular Cardiovascular: absent: As Per HPI, Acrocyanosis, Chest Pain, Chest Pain at Rest, Chest Pain with Activity, Claudication, Diaphoresis, Dyspnea, Dyspnea on Exertion, Edema, Irregular Heart Rhythm, Pain Radiating to Arm/Neck/Jaw, Leg Edema, Leg Ulcers, Lightheadedness, Orthopnea, Palpitations, Paroxysmal Nocturnal Dyspnea, Pedal Edema, Radiating Pain, Rapid Heart Rate, Slow Heart Rate, Syncope, Other - Respiratory Respiratory: absent: As Per HPI, Cough, Dyspnea, Hemoptysis, Dyspnea on Exertion, Wheezing, Snoring, Stridor, Pain on Inspiration, Chest Congestion, Excessive Mucous Production, Change in Mucous Color, Pain with Coughing, Other - Gastrointestinal Gastrointestinal: absent: As Per HPI, Abdominal Pain, Belching, Bloating, Change in Bowel Habits, Change in Stool Character, Coffee Ground Emesis, Constipation, Cramping, Diarrhea, Dyspepsia, Dysphagia, Early Satiety, Excessive Flatus, Fecal Incontinence, Heartburn, Hematemesis, Hematochezia, Loose Stools, Melena, Nausea, Odynophagia, Temesmus, Vomiting, Other - Neurological Neurological: As Per HPI - Psychiatric Psychiatric: absent: As Per HPI, Abnormal Sleep Pattern, Anhedonia, Anxiety, Auditory Hallucinations, Behavioral Changes, Change in Appetite, Change in Libido, Confusion, Depression, Difficulty Concentrating, Hallucinations, Homicidal Ideation, Hopelessness, Irritability, Memory Loss, Mood Swings, Panic Attacks, Paranoia, Suicidal Ideation, Visual Hallucinations, Tactile Hallucinations, Other - Endocrine Endocrine: absent: As Per HPI, Change in Body Appearance, Change in Libido, Cold Intolorance, Deepening of Voice, Excessive Sweating, Fatigue, Flushing, Heat Intolorance, Increase in Ring/Shoe/Hat Size, Palpitations, Polydipsia, Polyphagia, Polyuria, Other - Hematologic/Lymphatic Hematologic: absent: As Per HPI, Easy Bleeding, Easy Bruising, Lymphadenopathy, Other Past Patient History - Infectious Disease Hx of Infectious Diseases: None - Past Medical History & Family History Past Medical History?: Yes - Past Social History Smoking Status: Never Smoked - CARDIAC Hx Hypercholesterolemia: Yes Hx Hypertension: Yes - RENAL Hx Chronic Kidney Disease: Yes - ENDOCRINE/METABOLIC Hx Diabetes Mellitus Type 2: Yes - MUSCULOSKELETAL/RHEUMATOLOGICAL Hx Falls: No - PSYCHIATRIC Hx Substance Use: No Meds Allergies/Adverse Reactions: Allergies Allergy/AdvReac Type Severity Reaction Status Date / Time No Known Allergies Allergy Verified 10/04/18 11:55 - Medications Medications: Current Medications Amlodipine Besylate (Norvasc) 10 mg PO DAILY [facility] Aspirin (Ecotrin) 81 mg PO DAILY [facility] Atorvastatin Calcium (Lipitor) 40 mg PO HS [facility] Dextrose (Dextrose 50% Inj) 0 ml IV STAT PRN; Protocol PRN Reason: Hypoglycemia Protocol Dextrose (Glutose 15) 0 gm PO ONCE PRN; Protocol PRN Reason: Hypoglycemia Protocol Glucagon (Glucagen Diagnostic Kit) 0 mg IM STAT PRN; Protocol PRN Reason: Hypoglycemia Protocol Hydralazine HCl (Apresoline) 100 mg PO Q12 [facility] Sodium Chloride (Sodium Chloride 0.9%) 1,000 mls @ 100 mls/hr IV .Q10H [facility] Last Admin: 10/04/18 13:00 Dose: 100 mls/hr Insulin Human Regular (Humulin R) 0 units SC ACHS [facility]; Protocol Metoprolol Tartrate (Lopressor) 50 mg PO Q12 [facility] Pantoprazole Sodium (Protonix Ec Tab) 20 mg PO DAILY [facility] Sevelamer Carbonate (Renvela) 800 mg PO TID [facility] Sitagliptin Phosphate (Januvia) 25 mg PO DAILY [facility] Physical Exam - Constitutional Appears: Well - Head Exam Head Exam: ATRAUMATIC, NORMAL INSPECTION, NORMOCEPHALIC - Eye Exam Eye Exam: EOMI, Normal appearance, PERRL Pupil Exam: NORMAL ACCOMODATION, PERRL - ENT Exam ENT Exam: Mucous Membranes Moist, Normal Exam - Neck Exam Neck exam: Positive for: Normal Inspection - Respiratory Exam Respiratory Exam: Clear to Auscultation Bilateral, NORMAL BREATHING PATTERN - Cardiovascular Exam Cardiovascular Exam: REGULAR RHYTHM, +S1, +S2 - GI/Abdominal Exam GI & Abdominal Exam: Normal Bowel Sounds, Soft. absent: Tenderness - Extremities Exam Extremities exam: Positive for: normal inspection - Back Exam Back exam: NORMAL INSPECTION - Neurological Exam Neurological exam: Alert, CN II-XII Intact, Normal Gait, Oriented x3, Reflexes Normal Additional comments: NIHSS = 0 - Psychiatric Exam Psychiatric exam: Normal Affect, Normal Mood - Skin Skin Exam: Dry, Intact, Normal Color, Warm Results - Vital Signs Recent Vital Signs: Last Vital Signs Temp 97.8 F 10/04/18 11:55 Pulse 65 10/04/18 11:55 Resp 16 10/04/18 11:55 BP 191/91 H 10/04/18 11:55 Pulse Ox 99 10/04/18 12:40 - Labs Result Diagrams: 10/04/18 12:30 10/04/18 12:30 Labs: Laboratory Results - last 24 hr 10/04/18 10/04/18 10/04/18 12:16 12:30 12:30 WBC 6.7 RBC 3.89 L Hgb 12.5 Hct 37.7 MCV 96.9 H D MCH 32.3 H MCHC 33.3 RDW 16.6 H Plt Count 168 MPV 9.2 Neut % (Auto) 65.1 Lymph % (Auto) 18.1 L [place] % (Auto) 11.5 H Eos % (Auto) 4.5 H Baso % (Auto) 0.8 Neut # (Auto) 4.4 Lymph # (Auto) 1.2 [place] # (Auto) 0.8 Eos # (Auto) 0.3 Baso # (Auto) 0.1 PT INR APTT Sodium 136 Potassium 5.0 Chloride 91 L Carbon Dioxide 28 Anion Gap 22 H BUN 53 H Creatinine 8.6 H* Est GFR ( Amer) 8 Est GFR (Non-Af Amer) 6 POC Glucose (mg/dL) 199 H Random Glucose 192 H Calcium 9.0 Total Bilirubin 0.6 AST 23 ALT 17 L Alkaline Phosphatase 82 Troponin I 0.0480 Total Protein 8.4 H Albumin 4.8 Globulin 3.6 Albumin/Globulin Ratio 1.3 Triglycerides 201 H D Cholesterol 159 LDL Cholesterol Direct 57 HDL Cholesterol 34 Blood Type Blood Type Confirm Antibody Screen BBK History Checked 10/04/18 10/04/18 10/04/18 12:30 12:30 13:00 WBC RBC Hgb Hct MCV MCH MCHC RDW Plt Count MPV Neut % (Auto) Lymph % (Auto) [place] % (Auto) Eos % (Auto) Baso % (Auto) Neut # (Auto) Lymph # (Auto) [place] # (Auto) Eos # (Auto) Baso # (Auto) PT 11.0 INR 1.0 APTT 34.0 Sodium Potassium Chloride Carbon Dioxide Anion Gap BUN Creatinine Est GFR ( Amer) Est GFR (Non-Af Amer) POC Glucose (mg/dL) Random Glucose Calcium Total Bilirubin AST ALT Alkaline Phosphatase Troponin I Total Protein Albumin Globulin Albumin/Globulin Ratio Triglycerides Cholesterol LDL Cholesterol Direct HDL Cholesterol Blood Type A POSITIVE Blood Type Confirm A POSITIVE Antibody Screen Negative BBK History Checked No verified bt Assessment & Plan (1) Ischemic stroke Assessment and Plan: The location of the stroke could be embolic due to its distal and punctate nature. However, it may also be hypertension related. I recommend the followin. Telemetry 2. Echocardiogram with bubble study 3. Check HbA1c, lipid panel, B12, folate, TSH, vitamin D level 4. LOad with Plavix 300 mg once and continue 75 mg daily along with aspirin 81 mg daily 5. Lipitor 40 mg daily 6. Permissive HTN (only treat BP higher than 220/110 mm Hg for the next 36 hours) 7. PT/OT eval and treatment if needed 8. Fluids with NS at 100 mL/hr Thank you for this consultation. Status: Acute
--- NOTE | 2018-10-04 18:11 | CARD ---
APPROVED REPORT Date of service: 10/04/2018 EKG Measurement Heart [id number] <Conclusion> Normal sinus rhythm Left ventricular hypertrophy with repolarization abnormality Abnormal ECG
--- NOTE | 2018-10-04 18:23 | CARD ---
APPROVED REPORT Date of service: 10/04/2018 EXAM: Two-dimensional and M-mode echocardiogram with Doppler and color Doppler. Other Information Quality : ExcellentRhythm : NSR INDICATION CVA/TIA 2D DIMENSIONS IVSd2.03 (0.7-1.1cm)LVDd4.23 (3.9-5.9cm) LVOT Diameter2.19 (1.8-2.4cm)PWd1.29 (0.7-1.1cm) IVSs2.11 (0.8-1.2cm)LVDs2.24 (2.5-4.0cm) FS (%) 47.1 %PWs2.13 (0.8-1.2cm) M-Mode DIMENSIONS Left Atrium (MM)5.12 (2.5-4.0cm)IVSd1.47 (0.7-1.1cm) Aortic Root3.56 (2.2-3.7cm)LVDd5.53 (4.0-5.6cm) Aortic Cusp Exc.2.21 (1.5-2.0cm)PWd1.53 (0.7-1.1cm) IVSs2.47 cmFS (%) 62 % LVDs2.09 (2.0-3.8cm)PWs2.12 cm Aortic Valve AoV Peak Zgmwrvux484.9cm/sAoV VTI29.3cmAO Peak GR.7mmHg LVOT Peak Kixpskgl862.8cm/sLVOT VTI26.57cmAO Mean GR.4mmHg LOLA (VMAX)1.46le5UJE (VTI)1.94cm2 Mitral Valve MV E Plzhpcpd53.5cm/sMV DECEL [id number] A Hljqdkgo17.0cm/s MV OZP74slZ/A ratio1.0MVA (PHT)3.70cm2 TDI E/Lateral E'0.0E/Medial E'0.0 LEFT VENTRICLE The left ventricle is normal size. There is moderate asymmetric septal hypertrophy. The left ventricular systolic function is normal. The estimated ejection fraction is 60-65% No regional wall motion abnormalities noted.. Transmitral Doppler flow pattern is Grade II-pseudonormal filling dynamics. No left ventricle thrombus noted on this study. There is no ventricular septal defect visualized. There is no left ventricular aneurysm. There is no mass noted in the left ventricle. RIGHT VENTRICLE The right ventricle is normal size. There is normal right ventricular wall thickness. The right ventricular systolic function is normal. ATRIA The left atrium is moderately dilated. The right atrium size is normal. The interatrial septum is intact with no evidence for an atrial septal defect. AORTIC VALVE The aortic valve is normal in structure. No aortic regurgitation is present. There is no aortic valvular stenosis. There is no aortic valvular vegetation. MITRAL VALVE The mitral valve is normal in structure. There is no evidence of mitral valve prolapse. There is no mitral valve stenosis. There is mild mitral valve regurgitation noted. TRICUSPID VALVE The tricuspid valve is normal in structure. There is trace tricuspid valve regurgitation noted. There is no tricuspid valve prolapse or vegetation. There is no tricuspid valve stenosis. PULMONIC VALVE The pulmonary valve is normal in structure. There is no pulmonic valvular regurgitation. There is no pulmonic valvular stenosis. GREAT VESSELS The aortic root is normal in size. The ascending aorta is normal in size. The pulmonary artery is normal. The IVC is normal in size and collapses >50% with inspiration. PERICARDIAL EFFUSION There is no pericardial effusion. There is no pleural effusion. <Conclusion> There is moderate asymmetric septal hypertrophy. The estimated ejection fraction is 60-65% Transmitral Doppler flow pattern is Grade II-pseudonormal filling dynamics. The left atrium is moderately dilated. There is mild mitral valve regurgitation noted. There is trace tricuspid valve regurgitation noted.
[2018-10-04 18:43] LABS: HDL CHOLESTEROL 32 MG/DL (30-70)
[2018-10-04 18:54] LABS: LDL CHOLESTEROL 58 mg/dL (0-129)
[2018-10-04] MEDS: Insulin Regular 100 units/ml SC SCH ×2 (18:56→23:37)
[2018-10-05 05:30] LABS: HEMOGLOBIN 11.4 g/dL (12.0-18.0); MEAN CELL VOLUME 96.7 fl (80.0-94.0); MEAN CORPUSCULAR HEMOGLOBIN 32.6 pg (27.0-31.0); MEAN CORPUSCULAR HGB CONC 33.7 g/dL (33.0-37.0); RBC 3.49 Mil/uL (4.40-5.90); RED CELL DISTRIBUTION WIDTH 16.3 % (11.5-14.5)
[2018-10-05 05:44] LABS: ALB/GLOB RATIO 1.3 (1.0-2.1); ALBUMIN 3.8 g/dL (3.5-5.0); CALCIUM 8.1 mg/dL (8.4-10.2)
[2018-10-05] MEDS: Insulin Regular 100 units/ml SC SCH ×4 (08:21→22:30)
[2018-10-05] MEDS: Pantoprazole 20 mg EC Tab PO SCH (08:24)
--- NOTE | 2018-10-05 10:54 | CP.PCM.PN ---
<Tammie Lujan - Last Filed: 10/05/18 11:06> Subjective - Date & Time of Evaluation Date of Evaluation: 10/05/18 Time of Evaluation: 10:52 - Subjective Subjective: Pt seen and evaluated bedside. No new complaints, no neuro deficits, normal gait. Permissive HTN for 20 more hours. Objective - Vital Signs/Intake and Output Vital Signs (last 24 hours): Temp Pulse Resp BP Pulse Ox 98.0 F 64 18 172/75 H 97 10/05/18 07:48 10/05/18 07:48 10/05/18 07:48 10/05/18 07:48 10/05/18 07:48 - Medications Medications: Current Medications Amlodipine Besylate (Norvasc) 10 mg PO DAILY [facility] Aspirin (Ecotrin) 81 mg PO DAILY [facility] Last Admin: 10/05/18 08:24 Dose: 81 mg Atorvastatin Calcium (Lipitor) 40 mg PO HS [facility] Last Admin: 10/04/18 21:48 Dose: 40 mg Clopidogrel Bisulfate (Plavix) 75 mg PO DAILY [facility] Last Admin: 10/05/18 08:25 Dose: 75 mg Dextrose (Dextrose 50% Inj) 0 ml IV STAT PRN; Protocol PRN Reason: Hypoglycemia Protocol Dextrose (Glutose 15) 0 gm PO ONCE PRN; Protocol PRN Reason: Hypoglycemia Protocol Glucagon (Glucagen Diagnostic Kit) 0 mg IM STAT PRN; Protocol PRN Reason: Hypoglycemia Protocol Sodium Chloride (Sodium Chloride 0.9%) 1,000 mls @ 100 mls/hr IV .Q10H [facility] Last Admin: 10/04/18 23:32 Dose: 100 mls/hr Insulin Human Regular (Humulin R) 0 units SC ACHS [facility]; Protocol Last Admin: 10/05/18 08:21 Dose: Not Given Pantoprazole Sodium (Protonix Ec Tab) 20 mg PO DAILY [facility] Last Admin: 10/05/18 08:24 Dose: 20 mg Sevelamer Carbonate (Renvela) 800 mg PO TID [facility] Last Admin: 10/05/18 08:26 Dose: 800 mg Sitagliptin Phosphate (Januvia) 25 mg PO DAILY [facility] Last Admin: 10/05/18 08:23 Dose: 25 mg - Labs Labs: 10/05/18 04:45 10/05/18 04:45 PT 11.0 Seconds (9.8-13.1) 10/04/18 12:30 INR 1.0 10/04/18 12:30 APTT 34.0 Seconds (25.6-37.1) 10/04/18 12:30 - Constitutional Appears: Non-toxic, No Acute Distress - Head Exam Head Exam: ATRAUMATIC, NORMAL INSPECTION - Eye Exam Eye Exam: Normal appearance - ENT Exam ENT Exam: Mucous Membranes Moist - Respiratory Exam Respiratory Exam: NORMAL BREATHING PATTERN - Cardiovascular Exam Cardiovascular Exam: REGULAR RHYTHM - GI/Abdominal Exam GI & Abdominal Exam: Soft. absent: Tenderness - Back Exam Back Exam: NORMAL INSPECTION - Neurological Exam Neurological Exam: Alert, Awake, Normal Gait Neuro motor strength exam: Left Upper Extremity: 5, Right Upper Extremity: 5, Left Lower Extremity: 5, Right Lower Extremity: 5 - Psychiatric Exam Psychiatric exam: Normal Affect, Normal Mood - Skin Skin Exam: Normal Color, Warm Assessment and Plan - Assessment and Plan (Free Text) Assessment: 58 y/o male with PMH of HTN, DM2, Hypercholesterolemia, and ESRD on HD (T, TH, S) presents for elevated BP at home (217/100) and associated left upper- extremity numbness which became right upper extremity numbness, both of which resolved prior to arrival to ED. Brain MRI: 1. punctate acute or subacute infarct posterior right parietal lobe. No lobar brain infarction appreciable. Chronic lacune left external capsule reiterated. 2. Age related neuro degenerative changes appear somewhat prominent once again. No white matter changes appear relatively extensive once again and may even in fact involve the callososeptal interface accordingly, prior history of demyelination is not completely excluded and clinical correlation is recommended. Overall brain aprenchymal patterm is stable compared to prior MRI 04/11/18 with exception of punctate infarct right parietal lobe. Head MRA: No large vessel branch occlusion is appreciated at the intracranial space once again. Mild distal left vertebral artery stenosis appreciated with left dominant vertebrobasilar circulation present. Prior CT angio 04/11/18 suggested a high-grade stenosis distal left vertebral artery in the same location. Plan: CVA -S/P code stroke -Brain MRI: infarct posterior right parietal lobe -neuro consulted, inputs and recs appreciated ---f/u: HbA1C, folate, vit D -ECHO w/bubble: EF 60-65%, no ASD -Vit B12, TSH, LDL, HDL WNL -Triglycerides 202 -s/p Plavix 300mg -c/w Plavix 75mg daily -c/w home meds: Aspirin 81 -PT/OT consulted, input and recs appreciated -IVF NS @100 ml/hr HTN -holds home meds: Metoprolol Tartrate 25 mg, amLODIPine 10 mg, hydrALAZINE 50 mg TID -monitor, allow permissive HTN only treat BP higher than 220/110 mm Hg for the next 20 hours ESRD -dialysis since 2010, TTS, missed yesterday -BUN/Cr 65/10 -c/w home meds: Cinacalcet 30mg, Sevelamer Carbonate 1,600 mg -c/w dialysis -f/u BMP DM2 -continue w/home meds: GlipiZIDE 5 mg -ACHS, insulin sliding scale -hypoglycemia protocol Hypercholesterolemia -c/w home meds: Atorvastatin 40mg DVT Prophylaxis -SCD <Vinod Meneses D - Last Filed: 10/05/18 11:30> Objective - Vital Signs/Intake and Output Vital Signs (last 24 hours): Temp Pulse Resp BP Pulse Ox 98.0 F 64 18 172/75 H 97 10/05/18 07:48 10/05/18 07:48 10/05/18 07:48 10/05/18 07:48 10/05/18 07:48 - Medications Medications: Current Medications Amlodipine Besylate (Norvasc) 10 mg PO DAILY [facility] Aspirin (Ecotrin) 81 mg PO DAILY [facility] Last Admin: 10/05/18 08:24 Dose: 81 mg Atorvastatin Calcium (Lipitor) 40 mg PO HS [facility] Last Admin: 10/04/18 21:48 Dose: 40 mg Clopidogrel Bisulfate (Plavix) 75 mg PO DAILY [facility] Last Admin: 10/05/18 08:25 Dose: 75 mg Dextrose (Dextrose 50% Inj) 0 ml IV STAT PRN; Protocol PRN Reason: Hypoglycemia Protocol Dextrose (Glutose 15) 0 gm PO ONCE PRN; Protocol PRN Reason: Hypoglycemia Protocol Glucagon (Glucagen Diagnostic Kit) 0 mg IM STAT PRN; Protocol PRN Reason: Hypoglycemia Protocol Sodium Chloride (Sodium Chloride 0.9%) 1,000 mls @ 100 mls/hr IV .Q10H [facility] Last Admin: 10/05/18 11:03 Dose: 100 mls/hr Insulin Human Regular (Humulin R) 0 units SC [facility]; Protocol Last Admin: 10/05/18 08:21 Dose: Not Given Pantoprazole Sodium (Protonix Ec Tab) 20 mg PO DAILY [facility] Last Admin: 10/05/18 08:24 Dose: 20 mg Sevelamer Carbonate (Renvela) 800 mg PO TID [facility] Last Admin: 10/05/18 08:26 Dose: 800 mg Sitagliptin Phosphate (Januvia) 25 mg PO DAILY [facility] Last Admin: 10/05/18 08:23 Dose: 25 mg - Labs Labs: 10/05/18 04:45 10/05/18 04:45 PT 11.0 Seconds (9.8-13.1) 10/04/18 12:30 INR 1.0 10/04/18 12:30 APTT 34.0 Seconds (25.6-37.1) 10/04/18 12:30 Attending/Attestation - Attestation I have personally seen and examined this patient.: Yes I have fully participated in the care of the patient.: Yes I have reviewed all pertinent clinical information, including history, physical exam and plan: Yes Notes (Text): 10/05/18 11:29 Patient seen and examined with resident. Case discussed and agreed with assessment and plan.
--- NOTE | 2018-10-05 10:59 | PCM.STROKE ---
Interval History Stroke Date: 10/04/18 No other interval changes in current, PMHx, FHx, SocHx, ROS: other than on note by: (initial neuro H&P) - Treatment DVT Prophylaxis: Sequential compression device in place bilaterally Antiplatelet: Acetylsalicylic acid (ASA), Plavix Statin: Atrovastatin - Education Written Stroke Education provided regarding: personal risk factors, stroke warning sign/symptoms, how to activate emergency medical services, need to follow up after discharge Hx Atrial Fibrillation: No Hx Atrial Flutter: No - Therapy Notes I have reviewed care of the patient with: Dr. Cortez NIHSS Stroke Scale - Date/Time Evaluation Performed Date Performed: 10/05/18 Time Performed: 11:01 When Was NIHSS Performed: Re-evaluation - How Severe is the Stroke Level of Consciousness: 0=Alert LOC to Questions: 0=Both comments correct LOC to commands: 0=Obeys both correctly Best Gaze: 0=Normal Visual: 0=No visual loss Facial: 0=Normal Motor Arm - Left: 0=No drift Motor Arm - Right: 0=No drift Motor Leg - Left: 0=No drift Motor Leg - Right: 0=No drift Limb Ataxia: 0=Absent Sensory: 0=Normal Best Language: 0=No aphasia Dysarthia: 0=Normal articulation Extinction & Inattention (Neglect): 0=Normal, no object Score: 0 Exam - Vital Sign Vital Signs: Temp Pulse Resp BP Pulse Ox 98.0 F 64 18 172/75 H 97 10/05/18 07:48 10/05/18 07:48 10/05/18 07:48 10/05/18 07:48 10/05/18 07:48 Constitutional: No distress, Normal appearing, Other (aaox3; follows all co mmands) Ophthalmoscopic: papilledema, hemorrhage Right Pupil: Reactive Right Pupil Size (in mm): 2 Left Pupil: Reactive Left Pupil Size (in mm): 2 Cardiovascular: Regular rate & rhythm Mental Status: Normal: Orientation, Memory, Attention, Language, Fund of Knowledge Cranial Nerve: Normal: Visual Solis, Extraocular movement intact, Facial Sensation, Facial Strength, Hearing, Palate/Tongue Movement, Shoulder Strength Motor: Tone, Bulk Neuro motor strength exam: Left Upper Extremity: 5, Right Upper Extremity: 5, Left Lower Extremity: 5, Right Lower Extremity: 5 Sensation: Intact to pin, Vibration, Propriception throughout DTR: Patellar Left: 2+, Patellar Right: 2+ Flexor Plantar Reflex: Normal Coordination: Finger/nose, Heel/Garvey Gait: Normal with Absent Rhomberg Vascular Risk: Hypertension, Lipids, Dietary - Data reviewed Laboratory results: 10/05/18 04:45 10/05/18 04:45 Triglycerides 202 mg/DL (0-149) H 10/04/18 18:00 Cholesterol 163 mg/dL (0-199) 10/04/18 18:00 LDL Cholesterol Direct 58 mg/dL (0-129) 10/04/18 18:00 HDL Cholesterol 32 MG/DL (30-70) 10/04/18 18:00 Hemoglobin A1c 5.9 % (4.2-6.5) 10/04/18 20:43 Assessment and Plan (1) Ischemic stroke Assessment & Plan: Imaging reviewed: -Brain MRI (10/04/18): 1. punctate acute or subacute infarct posterior right parietal lobe. No lobar brain infarction appreciable. Chronic lacune left external capsule reiterated. 2. Age related neuro degenerative changes appear somewhat prominent once again. No white matter changes appear relatively extensive once again and may even in fact involve the callososeptal interface accordingly, prior history of demyelination is not completely excluded and clinical correlation is recommended. Overall brain aprenchymal patterm is stable compared to prior MRI 04/11/18 with exception of punctate infarct right parietal lobe. -Head MRA (10/04/18): No large vessel branch occlusion is appreciated at the intracranial space once again. Mild distal left vertebral artery stenosis appreciated with left dominant vertebrobasilar circulation present. Prior CT angio 04/11/18 suggested a high-grade stenosis distal left vertebral artery in the same location. -Ct Head (10/04/18): Stable age related neuro degenerative change are identified as well as left external capsule chronic lacune. 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 Further clinical correlation advised. -ECHO (10/04/18): No ASD, EF 60-65% -Continue ASA, Plavix and Statin. -Continue permissive HTN until approx 0400 tomorrow (do not treat BP unless higher than 220/110). -Pt may have his HD as scheduled, though please do a slower session than usual; we recommend NOT lowering his BP 2/2 vertebral artery stenosis. -Continue PT/OT. -Notify neuro of any acute change in condition. Herminia Grayson DNP, [employer] d/w Dr. Cortez Status: Acute
[2018-10-05] MEDS: Sodium Chloride 0.9% 1,000 ML IV SCH ×2 (11:03→22:02)
[2018-10-05] MEDS ORDERED: Dextrose 50% SYRINGE Inj (50 ml) IV SCH (13:15)
[2018-10-05 17:36] LABS: FOLATE 19.6 ng/mL
--- NOTE | 2018-10-05 19:42 | CP.PCM.CON ---
History of Present Illness - History of Present Illness History of Present Illness: pt is seen and examined, full consult is dictated #[id number] for hd today Past Patient History - Infectious Disease Hx of Infectious Diseases: None - Past Medical History & Family History Past Medical History?: Yes - Past Social History Smoking Status: Never Smoked - CARDIAC Hx Atrial Fibrillation: No - PULMONARY Hx Respiratory Disorders: Yes Hx Asthma: Yes Hx Bronchitis: No Hx Chronic Obstructive Pulmonary Disease (COPD): No Hx Emphysema: No Hx Lung Cancer: No Hx Pneumonia: Yes Hx Pulmonary Edema: No Hx Pulmonary Embolism: No Hx Respiratory Aspiration: No Hx Respiratory Tract Infection: No Hx Sleep Apnea: No Hx Tuberculosis: No - NEUROLOGICAL HX Cerebrovascular Accident: Yes - HEENT Hx HEENT Problems: No Hx Blind: No Hx Cataracts: No Hx Deafness: No Hx Difficulty Chewing: No Hx Epistaxis: No Hx Glaucoma: Yes (Right eye glaucoma) Hx Macular Degeneration: No Hx Sinusitis: No - RENAL Hx Chronic Kidney Disease: Yes Hx Dialysis: Yes Type of Dialysis Access: AV fistula in right arm Date of Last Dialysis Treatment: 10/03/18 Hx Kidney Stones: No Hx Neurogenic Bladder: No Hx Pyelonephritis: No Hx Renal (Kidney) Cancer: No Hx Renal Failure: No - ENDOCRINE/METABOLIC Hx Diabetes Mellitus Type 2: Yes - HEMATOLOGICAL/ONCOLOGICAL Hx Blood Disorders: Yes Hx AIDS: No Hx Anemia: Yes Hx Blood Transfusions: No Hx Blood Transfusion Reaction: No Hx Bruising: No Hx Cancer: No Hx Chemotherapy: No Hx Cirrhosis: No Hx Gum Bleeding: No Hx Hemophilia: No Hx Hepatitis A: No Hx Hepatitis B: No Hx Hepatitis C: No Hx Human Immunodeficiency Virus (HIV): No Hx Leukemia: No Hx Metastesis: No Hx Shingles: No Hx Sickle Cell Disease: No Hx Unexplained Bleeding: No Hx von Willebrand's Disease: No - INTEGUMENTARY Hx Dermatological Problems: No Hx Basil Cell: No Hx Avila: No Hx Cellulitis: No Hx Eczema: No Hx Melanoma: No Hx Psoriasis: No Hx Squamous Cell: No - MUSCULOSKELETAL/RHEUMATOLOGICAL Hx Arthritis: Yes Hx Rheumatoid Arthritis: Yes - GASTROINTESTINAL Hx Gastrointestinal Disorders: No Hx Bowel Surgery: No Hx Clostridium Difficile: No Hx Colitis: No Hx Colostomy: No Hx Constipation: No Hx Crohn's Disease: No Hx Diarrhea: No Hx Diverticulitis: No Hx Esophageal Varices: No Hx Fatty Liver Disease: No Hx Gall Bladder Disease: No Hx Gastritis: No Hx Gastroesophageal Reflux: No Hx Hemorrhoids: No Hx Ileostomy: No Hx Irritable Bowel: No Hx Liver Failure: No Hx Nausea: No Hx Pancreatitis: No HX Swallowing Problems: No Hx Ulcer: No Hx Vomiting: No - GENITOURINARY/GYNECOLOGICAL Hx Genitourinary Disorders: No Hx Bladder Cancer: No Hx Bladder Stone: No Hx Hematuria: No Hx Incontinence: No Hx Prostate Cancer: No Hx Prostate Problems: No Hx Reproductive Disorders: No Hx Sexually Transmitted Disorders: No Hx Urinary Tract Infection: No - PSYCHIATRIC Hx Psychophysiologic Disorder: No Hx Anxiety: No Hx Bipolar Disorder: No Hx Depression: No Hx Emotional Abuse: No Hx Hallucinations: No Hx Panic Symptoms: No Hx Paranoia: No Hx Post Traumatic Stress Disorder: No Hx Psychosis: No Hx Physical Abuse: No Hx Schizophrenia: No Hx Sexual Abuse: No Hx Substance Use: No - SURGICAL HISTORY Hx Surgeries: Yes Hx Abdominal Aortic Aneurysm Repair: No Hx Amputation: No Hx Angiogram: No Hx Angioplasty: No Hx Appendectomy: No Hx Arteriovenous Shunt: Yes (5 years ago) Hx Arthroscopy: No Hx Bile Duct Stent: No Hx Breast Biopsy: No Hx Cataract Extraction: No Hx Cardiac Catheterization: No Hx Carotid Endarterectomy: No Hx Section: No Hx Cholecystectomy: No Hx Coronary Artery Bypass Graft: No Hx Coronary Stent: No Hx Dilation and Curettage: No Hx Eye Surgery: Yes (glaucoma few months ago) Hx Femoral-Popliteal Bypass Graft: No Hx Gastric Bypass Surgery: No Hx Herniorrhaphy: No Hx Hysterectomy: No Hx Joint Replacement: No Hx Kidney Transplant: No Hx Liver Transplant: No Hx Mastectomy: No Hx Musculoskeletal Surgery: No Hx Open Heart Surgery: No Hx Open Reduction Internal Fixation: No Hx Orthopedic Surgery: No Hx Parathyroidectomy: No Hx Penile Implant: No Hx Pulmonary Surgery: No Hx Splenectomy: No Hx Thyroidectomy: No Hx Tonsillectomy: No Hx Tubal Ligation: No Hx Valve Replacement: No Hx Vascular Surgery: No Hx Vascular Access Device: No - ANESTHESIA Hx Anesthesia: No Hx Anesthesia Reactions: No Hx Malignant Hyperthermia: No Has any member of the family had a problem w/ anesthesia?: No Meds Allergies/Adverse Reactions: Allergies Allergy/AdvReac Type Severity Reaction Status Date / Time No Known Allergies Allergy Verified 10/04/18 11:55 - Medications Medications: Current Medications Acetaminophen (Tylenol 325mg Tab) 650 mg PO Q6 PRN PRN Reason: Pain, Mild (1-3) Last Admin: 10/05/18 19:32 Dose: 650 mg Amlodipine Besylate (Norvasc) 10 mg PO DAILY [facility] Aspirin (Ecotrin) 81 mg PO DAILY [facility] Last Admin: 10/05/18 08:24 Dose: 81 mg Atorvastatin Calcium (Lipitor) 40 mg PO HS [facility] Last Admin: 10/04/18 21:48 Dose: 40 mg Clopidogrel Bisulfate (Plavix) 75 mg PO DAILY [facility] Last Admin: 10/05/18 08:25 Dose: 75 mg Dextrose (Glutose 15) 0 gm PO ONCE PRN; Protocol PRN Reason: Hypoglycemia Protocol Dextrose (Dextrose 50% Inj) 2 ml IV TTS [facility]; Protocol Doxercalciferol (Hectorol) 0.5 mcg PO DAILY [facility] Last Admin: 10/05/18 16:27 Dose: 0.5 mcg Glucagon (Glucagen Diagnostic Kit) 0 mg IM STAT PRN; Protocol PRN Reason: Hypoglycemia Protocol Sodium Chloride (Sodium Chloride 0.9%) 1,000 mls @ 100 mls/hr IV .Q10H [facility] Last Admin: 10/05/18 11:03 Dose: 100 mls/hr Insulin Human Regular (Humulin R) 0 units SC ACHS [facility]; Protocol Last Admin: 10/05/18 16:33 Dose: Not Given Pantoprazole Sodium (Protonix Ec Tab) 20 mg PO DAILY [facility] Last Admin: 10/05/18 08:24 Dose: 20 mg Sevelamer Carbonate (Renvela) 800 mg PO TID [facility] Last Admin: 10/05/18 16:21 Dose: 800 mg Sitagliptin Phosphate (Januvia) 25 mg PO DAILY [facility] Last Admin: 10/05/18 08:23 Dose: 25 mg Results - Vital Signs Recent Vital Signs: Last Vital Signs Temp 97.9 F 10/05/18 15:53 Pulse 71 10/05/18 15:53 Resp 17 10/05/18 15:53 BP 180/92 H 10/05/18 15:53 Pulse Ox 98 10/05/18 15:53 - Labs Result Diagrams: 10/05/18 04:45 10/05/18 04:45 Labs: Laboratory Results - last 24 hr 10/04/18 10/04/18 10/04/18 12:20 17:36 20:43 WBC RBC Hgb Hct MCV MCH MCHC RDW Plt Count Sodium Potassium Chloride Carbon Dioxide Anion Gap BUN Creatinine Est GFR ( Amer) Est GFR (Non-Af Amer) POC Glucose (mg/dL) 125 H Random Glucose Hemoglobin A1c 5.9 5.9 Calcium Total Bilirubin AST ALT Alkaline Phosphatase Total Protein Albumin Globulin Albumin/Globulin Ratio Vitamin B12 25-OH Vitamin D Total Folate TSH 3rd Generation 10/04/18 10/05/18 10/05/18 21:08 04:45 04:45 WBC 7.0 RBC 3.49 L Hgb 11.4 L Hct 33.7 L MCV 96.7 H MCH 32.6 H MCHC 33.7 RDW 16.3 H Plt Count 153 Sodium 136 Potassium 4.7 Chloride 97 L Carbon Dioxide 23 Anion Gap 21 H BUN 65 H Creatinine 10.0 H* Est GFR ( Amer) 7 Est GFR (Non-Af Amer) 5 POC Glucose (mg/dL) 140 H Random Glucose 106 Hemoglobin A1c Calcium 8.1 L Total Bilirubin 0.5 AST 13 L D ALT 18 L Alkaline Phosphatase 63 Total Protein 6.7 Albumin 3.8 Globulin 2.8 Albumin/Globulin Ratio 1.3 Vitamin B12 25-OH Vitamin D Total Folate [facility] 3rd Generation 10/05/18 10/05/18 10/05/18 05:35 05:35 08:10 WBC RBC Hgb Hct MCV MCH MCHC RDW Plt Count Sodium Potassium Chloride Carbon Dioxide Anion Gap BUN Creatinine Est GFR ( Amer) Est GFR (Non-Af Amer) POC Glucose (mg/dL) 111 H Random Glucose Hemoglobin A1c Calcium Total Bilirubin AST ALT Alkaline Phosphatase Total Protein Albumin Globulin Albumin/Globulin Ratio Vitamin B12 799 25-OH Vitamin D Total 72.7 Folate 19.6 TSH 3rd Generation 1.63 10/05/18 10/05/18 10:36 16:10 WBC RBC Hgb Hct MCV MCH MCHC RDW Plt Count Sodium Potassium Chloride Carbon Dioxide Anion Gap BUN Creatinine Est GFR ( Amer) Est GFR (Non-Af Amer) POC Glucose (mg/dL) 200 H 128 H Random Glucose Hemoglobin A1c Calcium Total Bilirubin AST ALT Alkaline Phosphatase Total Protein Albumin Globulin Albumin/Globulin Ratio Vitamin B12 25-OH Vitamin D Total Folate TSH 3rd Generation
[2018-10-06 05:39] LABS: HEMOGLOBIN 10.7 g/dL (12.0-18.0); MEAN CELL VOLUME 96.8 fl (80.0-94.0); MEAN CORPUSCULAR HGB CONC 34.1 g/dL (33.0-37.0); RBC 3.25 Mil/uL (4.40-5.90); RED CELL DISTRIBUTION WIDTH 16.3 % (11.5-14.5); WHITE BLOOD COUNT 6.6 K/uL (4.8-10.8)
[2018-10-06 05:44] LABS: ALB/GLOB RATIO 1.3 (1.0-2.1); ALBUMIN 3.6 g/dL (3.5-5.0); CALCIUM 8.1 mg/dL (8.4-10.2)
--- NOTE | 2018-10-06 07:46 | CON ---
DATE: 10/05/2018 RENAL CONSULTATION LOCATION: The patient is located in room 405, bed 1. REQUESTED BY: Vinod Meneses MD REASON FOR RENAL CONSULTATION: End-stage renal disease and for continuation of the hemodialysis. HISTORY OF PRESENT ILLNESS: Mr. Patten is a 58-year-old middle-aged male with past medical history significant for hypertension, diabetes, hyperlipidemia, diabetic retinopathy, status post eye surgery, CVA x2 in the past with no residual weakness who was admitted through the emergency room with chief complaints of elevated blood pressure of 217/100 at home and also associated with left upper extremity numbness and later on which became right upper extremity numbness both of which resolved prior to the arrival to the emergency room. The patient was admitted for possible CVA. The patient missed hemodialysis yesterday. Renal consult is requested for continuation of hemodialysis. The patient denies any chest pain or palpitation. Denies any nausea, vomiting, or diarrhea. Denies any abdominal pain. Denies any fever or cough. Denies any edema of the legs. Denies any urinary symptoms. The patient is very compliance with hemodialysis schedule. PAST MEDICAL HISTORY: Significant for longstanding hypertension, diabetes, hyperlipidemia, end-stage renal disease, CVA, diabetic retinopathy. PAST SURGICAL HISTORY: Status post right upper extremity AV fistula and the right eye surgery. ALLERGIES: NO KNOWN DRUG ALLERGIES. SOCIAL HISTORY: No smoking, no alcohol, no drugs. CURRENT MEDICATIONS: Include as follows, aspirin 81 mg p.o. daily, Hectorol 0.5 mcg p.o. daily, Humulin R per sliding scale, Januvia 25 mg p.o. daily, Lipitor 40 mg p.o. at bedtime, Norvasc 10 mg p.o. daily, Plavix 75 mg p.o. daily, Protonix 20 mg p.o. daily, Renvela 800 mg p.o. t.i.d., and Tylenol. FAMILY HISTORY: Not significant. REVIEW OF SYSTEMS: Significant for uncontrolled hypertension and numbness on both upper extremities. All other review of systems are reviewed and are negative. PHYSICAL EXAMINATION: VITAL SIGNS: As follows: Blood pressure 178/82, pulse 65, respirations 18, temperature 97.9, saturation 98%, height 5 feet 3 inches, weighs 160 pounds. GENERAL: Mr. Patten is a 58-year-old middle-aged male, moderately-built, moderately-nourished, not in acute distress. HEENT: Pupils are normal and reactive to light and accommodation. Conjunctivae pink. Sclerae anicteric. Tongue is moist. Trachea is midline. LUNGS: Symmetric on both sides. Bilateral breath sounds present. Clear to auscultation. CARDIOVASCULAR SYSTEM: [place] at the fifth intercostal space, midclavicular line. S1, S2 audible. No murmur or gallop. ABDOMEN: Normal in appearance. Soft, tympanitic. No guarding. No rigidity. No hepatosplenomegaly. CENTRAL NERVOUS SYSTEM: The patient is alert, awake, oriented x3. Nonfocal neuro examination. Cranial nerves II through XII grossly intact. Sensory and motor system is within normal limits. EXTREMITIES: No cyanosis. No clubbing. No edema. LABORATORY DATA: Include as follows as of 10/05/2018: WBC 7, hemoglobin 11.4, hematocrit 33.7, platelets 153. Sodium 136, potassium 4.7, chloride 97, CO2 of 23, BUN 65, creatinine 10, glucose 106, calcium 8.1. Total bilirubin 0.4, AST 13, ALT 18, alkaline phosphatase 63, total protein 6.7, albumin is 3.8. B12 is 799. Vitamin D level 72.7. Folic acid 19.6. TSH 1.63. His other reports; chest x-ray as of 10/04/2018; no active disease. CT of the head as of 10/04/2018, a punctate acute or subacute infarct posterior right parietal lobe, no lobar brain fault appreciable, chronic lacunar left external capsule reiterated, age-related neurodegenerative change appears somewhat prominent once again. No white matter changes, appear relatively extensive once again and may even in fact involve callosal-septal interface accordingly and prior history of demyelination is not completely excluded and clinical correlation is recommended. Overall, brain parenchymal pattern is stable compared to the prior MRI on 04/11/2018 with exception of punctate infarct to right parietal lobe. CT of the head as of 10/04/2018, stable, related neurodegenerative changes are identified as well as left external capsule chronic lacunar. MRI of the head as of 10/04/2018, impression; no large vessel branch occlusion is appreciated at the intracranial space once again and mild distal left vertebral artery stenosis is appreciated with left dominant vertebral basilar circulation present. Prior CT angiogram on 04/01/2018; suggested a high-grade stenosis at distal left vertebral artery in the same location. ASSESSMENT AND PLAN: In summary, Ms. Patten is a 58-year-old middle-aged male with a longstanding history of hypertension, diabetes, diabetic retinopathy, end-stage renal disease, secondary hyperparathyroidism, cerebrovascular accident x2 in the past who was admitted with numbness of both hands and found to have right parietal lacunar infarct. 1. End-stage renal disease. Continue hemodialysis three times a week. The patient missed dialysis yesterday, scheduled for hemodialysis this afternoon and will continue three times a week, Wednesday, , and Wednesday. 2. Hypertension. Continue blood pressure medication as per the Neurology protocol. 3. Diabetes. Sugars are under control. We will follow with you. Stable hemodialysis treatment this afternoon. Thank you for allowing me to participate in your patient's care. Juliet Jeffries MD
[2018-10-06] MEDS: Insulin Regular 100 units/ml SC SCH ×3 (07:50→17:29)
[2018-10-06] MEDS: Pantoprazole 20 mg EC Tab PO SCH (08:11)
--- NOTE | 2018-10-06 11:57 | PCM.STROKE ---
Interval History Stroke Date: 10/04/18 - Treatment Antiplatelet: Acetylsalicylic acid (ASA), Plavix Statin: Atrovastatin - Education Written Stroke Education provided regarding: personal risk factors, stroke warning sign/symptoms, how to activate emergency medical services, need to follow up after discharge Hx Atrial Fibrillation: No Hx Atrial Flutter: No - Therapy Notes I have reviewed care of the patient with: Dr. Cortez NIHSS Stroke Scale - Date/Time Evaluation Performed Date Performed: 10/06/18 Time Performed: 11:58 When Was NIHSS Performed: Re-evaluation - How Severe is the Stroke Level of Consciousness: 0=Alert LOC to Questions: 0=Both comments correct LOC to commands: 0=Obeys both correctly Best Gaze: 0=Normal Visual: 0=No visual loss Facial: 0=Normal Motor Arm - Left: 0=No drift Motor Arm - Right: 0=No drift Motor Leg - Left: 0=No drift Motor Leg - Right: 0=No drift Limb Ataxia: 0=Absent Sensory: 0=Normal Best Language: 0=No aphasia Dysarthia: 0=Normal articulation Extinction & Inattention (Neglect): 0=Normal, no object Score: 0 Exam - Vital Sign Vital Signs: Temp Pulse Resp BP Pulse Ox 97.6 F 67 18 208/84 H 98 10/06/18 11:46 10/06/18 11:46 10/06/18 11:46 10/06/18 11:46 10/06/18 11:46 Constitutional: No distress, Normal appearing Ophthalmoscopic: papilledema, hemorrhage Right Pupil: Reactive Right Pupil Size (in mm): 3 Left Pupil: Reactive Left Pupil Size (in mm): 3 Cardiovascular: Regular rate & rhythm Mental Status: Normal: Orientation, Memory, Attention, Language, Fund of Knowledge Cranial Nerve: Normal: Visual [place], Extraocular movement intact, Facial Sensation, Facial Strength, Hearing, Palate/Tongue Movement, Shoulder Strength Motor: Tone, Bulk Neuro motor strength exam: Left Upper Extremity: 5, Right Upper Extremity: 5, Left Lower Extremity: 5, Right Lower Extremity: 5 Sensation: Intact to pin, Vibration, Propriception throughout DTR: Patellar Left: 2+, Patellar Right: 2+ Coordination: Finger/nose, Heel/Garvey Gait: Normal with Absent Rhomberg Vascular Risk: Hypertension, Dietary - Data reviewed Laboratory results: 10/06/18 04:35 10/06/18 04:35 Triglycerides 202 mg/DL (0-149) H 10/04/18 18:00 Cholesterol 163 mg/dL (0-199) 10/04/18 18:00 LDL Cholesterol Direct 58 mg/dL (0-129) 10/04/18 18:00 HDL Cholesterol 32 MG/DL (30-70) 10/04/18 18:00 Hemoglobin A1c 5.9 % (4.2-6.5) 10/04/18 20:43 Assessment and Plan (1) Ischemic stroke Assessment & Plan: Imaging reviewed: -Brain MRI (10/04/18): 1. punctate acute or subacute infarct posterior right parietal lobe. No lobar brain infarction appreciable. Chronic lacune left external capsule reiterated. 2. Age related neuro degenerative changes appear somewhat prominent once again. No white matter changes appear relatively extensive once again and may even in fact involve the callososeptal interface accordingly, prior history of demyelination is not completely excluded and clinical correlation is recommended. Overall brain aprenchymal patterm is stable compared to prior MRI 04/11/18 with exception of punctate infarct right parietal lobe. -Head MRA (10/04/18): No large vessel branch occlusion is appreciated at the intracranial space once again. Mild distal left vertebral artery stenosis appreciated with left dominant vertebrobasilar circulation present. Prior CT angio 04/11/18 suggested a high-grade stenosis distal left vertebral artery in the same location. -Ct Head (10/04/18): Stable age related neuro degenerative change are identified as well as left external capsule chronic lacune. 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 Further clinical correlation advised. -ECHO (10/04/18): No ASD, EF 60-65% -Continue ASA, Plavix and Statin upon d/c. -Continue management of secondary stroke risk factors (BP, diet, renal function, etc). -Pt has an appt to f/u with his PMD on 10/14/18; I have instructed him to f/u with his neurologist in [facility] (pt cannot recall name) within 1 month. Pt may contact our office if he has any questions or concerns. Please provide him with our office info. Thank you for this consultation. Herminia Grayson, YANET, [employer] d/w Dr. Cortez Status: Acute
[2018-10-06 16:03] VITALS: RESP 16; TEMP 98.1; O2SAT 97
[2018-10-06 16:34] VITALS: BP 171/83; PULSE 73
--- NOTE | 2018-10-06 16:58 | CP.PCM.DIS ---
<Osito Kline - Last Filed: 10/06/18 16:56> Provider - Provider Date of Admission: 10/04/18 16:13 Attending physician: Vinod Meneses MD Consults: 10/04/18 12:15 Stroke Team Consult Stat Comment: Consulting Provider: Neurohospitalist Consulting Physician: NEUROHOSP Neurohospitalist for Consult: Alexis Cortez Neurohospitalist for Consult: Mirela Mendez Reason for Consult: LUE numbness 10/04/18 16:11 Nephrology Consult Routine Comment: Consulting Provider: Juliet Jeffries Consulting Physician: Juliet Jeffries Reason for Consult: pt ESRD on HD since 2010 Time Spent in preparation of Discharge (in minutes): 20 Diagnosis - Discharge Diagnosis (1) Ischemic stroke Status: Acute (2) End stage renal disease on dialysis Status: Chronic (3) Diabetes insipidus Status: Chronic (4) Hyperlipidemia Status: Chronic (5) HTN (hypertension) Status: Chronic Hospital Course - Lab Results Lab Results: Most Recent Lab Values WBC 6.6 K/uL (4.8-10.8) 10/06/18 04:35 RBC 3.25 Mil/uL (4.40-5.90) L 10/06/18 04:35 Hgb 10.7 g/dL (12.0-18.0) L 10/06/18 04:35 Hct 31.5 % (35.0-51.0) L 10/06/18 04:35 MCV 96.8 fl (80.0-94.0) H 10/06/18 04:35 MCH 33.0 pg (27.0-31.0) H 10/06/18 04:35 MCHC 34.1 g/dL (33.0-37.0) 10/06/18 04:35 RDW 16.3 % (11.5-14.5) H 10/06/18 04:35 Plt Count 145 K/uL (130-400) 10/06/18 04:35 MPV 9.2 fl (7.2-11.7) 10/04/18 12:30 Neut % (Auto) 65.1 % (50.0-75.0) 10/04/18 12:30 Lymph % (Auto) 18.1 % (20.0-40.0) L 10/04/18 12:30 [place] % (Auto) 11.5 % (0.0-10.0) H 10/04/18 12:30 Eos % (Auto) 4.5 % (0.0-4.0) H 10/04/18 12:30 Baso % (Auto) 0.8 % (0.0-2.0) 10/04/18 12:30 Neut # (Auto) 4.4 K/uL (1.8-7.0) 10/04/18 12:30 Lymph # (Auto) 1.2 K/uL (1.0-4.3) 10/04/18 12:30 [place] # (Auto) 0.8 K/uL (0.0-0.8) 10/04/18 12:30 Eos # (Auto) 0.3 K/uL (0.0-0.7) 10/04/18 12:30 Baso # (Auto) 0.1 K/uL (0.0-0.2) 10/04/18 12:30 PT 11.0 Seconds (9.8-13.1) 10/04/18 12:30 INR 1.0 10/04/18 12:30 APTT 34.0 Seconds (25.6-37.1) 10/04/18 12:30 Sodium 136 mmol/l (132-148) 10/06/18 04:35 Potassium 4.3 MMOL/L (3.6-5.0) 10/06/18 04:35 Chloride 99 mmol/L (98-107) 10/06/18 04:35 Carbon Dioxide 26 mmol/L (22-30) 10/06/18 04:35 Anion Gap 15 (10-20) 10/06/18 04:35 BUN 35 mg/dl (9-20) H 10/06/18 04:35 Creatinine 6.6 mg/dl (0.8-1.5) H 10/06/18 04:35 Est GFR ( Amer) 11 10/06/18 04:35 Est GFR (Non-Af Amer) 9 10/06/18 04:35 POC Glucose (mg/dL) 131 mg/dL (65-110) H 10/06/18 16:02 Random Glucose 91 mg/dL (75-110) 10/06/18 04:35 Hemoglobin A1c 5.9 % (4.2-6.5) 10/04/18 20:43 Calcium 8.1 mg/dL (8.4-10.2) L 10/06/18 04:35 Total Bilirubin 0.5 mg/dl (0.2-1.3) 10/06/18 04:35 AST 16 U/L (17-59) L D 10/06/18 04:35 ALT 24 U/L (21-72) 10/06/18 04:35 Alkaline Phosphatase 60 U/L (38-126) 10/06/18 04:35 Troponin I 0.0480 ng/mL (0.00-0.120) 10/04/18 12:30 Total Protein 6.4 G/DL (6.3-8.2) 10/06/18 04:35 Albumin 3.6 g/dL (3.5-5.0) 10/06/18 04:35 Globulin 2.8 gm/dL (2.2-3.9) 10/06/18 04:35 Albumin/Globulin Ratio 1.3 (1.0-2.1) 10/06/18 04:35 Triglycerides 202 mg/DL (0-149) H 10/04/18 18:00 Cholesterol 163 mg/dL (0-199) 10/04/18 18:00 LDL Cholesterol Direct 58 mg/dL (0-129) 10/04/18 18:00 HDL Cholesterol 32 MG/DL (30-70) 10/04/18 18:00 Vitamin B12 799 pg/mL (239-931) 10/05/18 05:35 25-OH Vitamin D Total 72.7 NG/ML (30.0-100.0) 10/05/18 08:10 Folate 19.6 ng/mL 10/05/18 05:35 TSH 3rd Generation 1.63 mIU/ML (0.46-4.68) 10/05/18 05:35 Blood Type A POSITIVE 10/04/18 12:30 Blood Type Confirm A POSITIVE 10/04/18 13:00 Antibody Screen Negative 10/04/18 12:30 BBK History Checked No verified bt 10/04/18 12:30 - Hospital Course Hospital Course: Assessment: 58 yo male with PMH of HTn, DM2, hypercholesterolemia, and ESRD on HD (T, TH, S) presented to Er with BP of (217/100) and associated left upper-extremity numbness which became right upper extremity numbness, both of which resolved prior to arrival to ED. Patient was admitted for evaluation of CVA. In Er code stroke called, MRI + for LEft vertebral artery stenosis, patient was admitted for Tele for observation, Neuro Were consulted, Plavix loading dose given and continued with 75mg. Patient symptoms improved. Patient received his HD while stay ( today last HD) tolerated well. Patient seen and examined at bedside today, Patient symptoms improved. At this time patient have no complain, and is stable to be discharged home During stay patient home medication were continued Blood pressure stable Patient will be discharged with Plavix 30 days and aspirin 81 Start clonidine 0.1 COntinue all home medication Continue HD (T,TH,S) Pt has an appt to f/u with his PMD on 10/14/18 Pt follow up with neurologist in [facility] Diagnosis Brain MRI: 1. punctate acute or subacute infarct posterior right parietal lobe. No lobar brain infarction appreciable. Chronic lacune left external capsule reiterated. 2. Age related neuro degenerative changes appear somewhat prominent once again. No white matter changes appear relatively extensive once again and may even in fact involve the callososeptal interface accordingly, prior history of demyelination is not completely excluded and clinical correlation is recommended. Overall brain aprenchymal pattern is stable compared to prior MRI 04/11/18 with exception of punctate infarct right parietal lobe. Head MRA: No large vessel branch occlusion is appreciated at the intracranial space once again. Mild distal left vertebral artery stenosis appreciated with left dominant vertebrobasilar circulation present. Prior CT angio 04/11/18 suggested a high-grade stenosis distal left vertebral artery in the same location. ECHO (10/04/18): No ASD, EF 60-65% Discharge Exam - Head Exam Head Exam: ATRAUMATIC, NORMAL INSPECTION - Eye Exam Eye Exam: EOMI, Normal appearance, PERRL Pupil Exam: NORMAL ACCOMODATION, PERRL - Respiratory Exam Respiratory Exam: Clear to PA & Lateral, NORMAL BREATHING PATTERN, UNREMARKABLE - Cardiovascular Exam Cardiovascular Exam: REGULAR RHYTHM, +S1, +S2 - GI/Abdominal Exam GI & Abdominal Exam: Normal Bowel Sounds, Unremarkable - Neurological Exam Neurological exam: Alert, CN II-XII Intact, Oriented x3 - Psychiatric Exam Psychiatric exam: Normal Affect, Normal Mood - Skin Skin Exam: Dry, Intact, Normal Color, Warm Discharge Plan - Discharge Medications Prescriptions: cloNIDine [Catapres] 0.1 mg PO Q12 #30 tab Clopidogrel [Plavix] 75 mg PO DAILY #30 tab Metoprolol Tartrate [Lopressor] 50 mg PO Q12 #30 tab - Follow Up Plan Condition: FAIR Disposition: HOME/ ROUTINE Instructions: Stroke (DC) Additional Instructions: continue dialysis [id number] follow up with primary MD in 1 week ff up with Neuro in 1 wk appt with Neuro Interventionalist ( Alon Bynum, Adriana) for Vertebral Art Stenosis Referrals: Juliet Jeffries MD [Staff Provider] - Alexis Cortez MD [Medical Doctor] - <Sachi Charlton - Last Filed: 10/06/18 17:36> Provider - Provider Date of Admission: 10/04/18 16:13 Attending physician: Vinod Meneses MD Consults: 10/04/18 12:15 Stroke Team Consult Stat Comment: Consulting Provider: Neurohospitalist Consulting Physician: NEUROHOSP Neurohospitalist for Consult: Alexis Cortez Neurohospitalist for Consult: Mirela Mendez Reason for Consult: LUE numbness 10/04/18 16:11 Nephrology Consult Routine Comment: Consulting Provider: Juliet Jeffries Consulting Physician: Juliet Jeffries Reason for Consult: pt ESRD on HD since 2010 Hospital Course - Lab Results Lab Results: Most Recent Lab Values WBC 6.6 K/uL (4.8-10.8) 10/06/18 04:35 RBC 3.25 Mil/uL (4.40-5.90) L 10/06/18 04:35 Hgb 10.7 g/dL (12.0-18.0) L 10/06/18 04:35 Hct 31.5 % (35.0-51.0) L 10/06/18 04:35 MCV 96.8 fl (80.0-94.0) H 10/06/18 04:35 MCH 33.0 pg (27.0-31.0) H 10/06/18 04:35 MCHC 34.1 g/dL (33.0-37.0) 10/06/18 04:35 RDW 16.3 % (11.5-14.5) H 10/06/18 04:35 Plt Count 145 K/uL (130-400) 10/06/18 04:35 MPV 9.2 fl (7.2-11.7) 10/04/18 12:30 Neut % (Auto) 65.1 % (50.0-75.0) 10/04/18 12:30 Lymph % (Auto) 18.1 % (20.0-40.0) L 10/04/18 12:30 [place] % (Auto) 11.5 % (0.0-10.0) H 10/04/18 12:30 Eos % (Auto) 4.5 % (0.0-4.0) H 10/04/18 12:30 Baso % (Auto) 0.8 % (0.0-2.0) 10/04/18 12:30 Neut # (Auto) 4.4 K/uL (1.8-7.0) 10/04/18 12:30 Lymph # (Auto) 1.2 K/uL (1.0-4.3) 10/04/18 12:30 [place] # (Auto) 0.8 K/uL (0.0-0.8) 10/04/18 12:30 Eos # (Auto) 0.3 K/uL (0.0-0.7) 10/04/18 12:30 Baso # (Auto) 0.1 K/uL (0.0-0.2) 10/04/18 12:30 PT 11.0 Seconds (9.8-13.1) 10/04/18 12:30 INR 1.0 10/04/18 12:30 APTT 34.0 Seconds (25.6-37.1) 10/04/18 12:30 Sodium 136 mmol/l (132-148) 10/06/18 04:35 Potassium 4.3 MMOL/L (3.6-5.0) 10/06/18 04:35 Chloride 99 mmol/L (98-107) 10/06/18 04:35 Carbon Dioxide 26 mmol/L (22-30) 10/06/18 04:35 Anion Gap 15 (10-20) 10/06/18 04:35 BUN 35 mg/dl (9-20) H 10/06/18 04:35 Creatinine 6.6 mg/dl (0.8-1.5) H 10/06/18 04:35 Est GFR ( Amer) 11 10/06/18 04:35 Est GFR (Non-Af Amer) 9 10/06/18 04:35 POC Glucose (mg/dL) 131 mg/dL (65-110) H 10/06/18 16:02 Random Glucose 91 mg/dL (75-110) 10/06/18 04:35 Hemoglobin A1c 5.9 % (4.2-6.5) 10/04/18 20:43 Calcium 8.1 mg/dL (8.4-10.2) L 10/06/18 04:35 Total Bilirubin 0.5 mg/dl (0.2-1.3) 10/06/18 04:35 AST 16 U/L (17-59) L D 10/06/18 04:35 ALT 24 U/L (21-72) 10/06/18 04:35 Alkaline Phosphatase 60 U/L (38-126) 10/06/18 04:35 Troponin I 0.0480 ng/mL (0.00-0.120) 10/04/18 12:30 Total Protein 6.4 G/DL (6.3-8.2) 10/06/18 04:35 Albumin 3.6 g/dL (3.5-5.0) 10/06/18 04:35 Globulin 2.8 gm/dL (2.2-3.9) 10/06/18 04:35 Albumin/Globulin Ratio 1.3 (1.0-2.1) 10/06/18 04:35 Triglycerides 202 mg/DL (0-149) H 10/04/18 18:00 Cholesterol 163 mg/dL (0-199) 10/04/18 18:00 LDL Cholesterol Direct 58 mg/dL (0-129) 10/04/18 18:00 HDL Cholesterol 32 MG/DL (30-70) 10/04/18 18:00 Vitamin B12 799 pg/mL (239-931) 10/05/18 05:35 25-OH Vitamin D Total 72.7 NG/ML (30.0-100.0) 10/05/18 08:10 Folate 19.6 ng/mL 10/05/18 05:35 TSH 3rd Generation 1.63 mIU/ML (0.46-4.68) 10/05/18 05:35 Blood Type A POSITIVE 10/04/18 12:30 Blood Type Confirm A POSITIVE 10/04/18 13:00 Antibody Screen Negative 10/04/18 12:30 BBK History Checked No verified bt 10/04/18 12:30 Attending/Attestation - Attestation I have personally seen and examined this patient.: Yes I have fully participated in the care of the patient.: Yes I have reviewed all pertinent clinical information, including history, physical exam and plan: Yes Notes (Text): Diagnoses: Acute CVA Hypertensive Urgency ESRD on HD DM type II ( pt does not have Diabetes Insipidus) - cont ASA, Plavix and Statin - pt's neuro symptoms resolved however MRI of Brain shows Punctate infarct - PT/OT consulted- pt back at baseline - BP uncontrolled - Initially BP was kept high to allow for permissive HTN - will d/c home on Clonidine, Norvasc, Metoprolol and Hydralazine -cont TIW HD, counseled on need for compliance - discussed need to ff up with Neuro and Neuro Interventionalist for Vertebral art stenosis 10/06/18 17:36
== END 2018-10-06 17:10 | disposition home or self-care (01) | DRG 45 ==
LOC: H.ER 11:42 → INTOOBSV 12:36 → H.ERHOLD 12:36 → OBSVTOIN 16:13 → H.TEL 17:13
PROC: 5A1D70Z Performance of Urinary Filtration, Intermittent, Less than 6 Hours Per Day (ICD-10-PCS; principal; 2018-10-06)
DX: I63.212 Cerebral infarction due to unspecified occlusion or stenosis of left vertebral artery (principal); E11.22 Type 2 diabetes mellitus with diabetic chronic kidney disease; N25.81 Secondary hyperparathyroidism of renal origin; I12.0 Hypertensive chronic kidney disease with stage 5 chronic kidney disease or end stage renal disease; N18.6 End stage renal disease; I16.0 Hypertensive urgency; E11.319 Type 2 diabetes mellitus with unspecified diabetic retinopathy without macular edema; Z99.2 Dependence on renal dialysis; R29.700 NIHSS score 0; E78.5 Hyperlipidemia, unspecified; E78.00 Pure hypercholesterolemia, unspecified; Z87.01 Personal history of pneumonia (recurrent); Z79.84 Long term (current) use of oral hypoglycemic drugs; Z79.02 Long term (current) use of antithrombotics/antiplatelets; Z79.82 Long term (current) use of aspirin; Z79.899 Other long term (current) drug therapy